=== PATIENT | male | born 1960 | race Hispanic/Latino ===

== ENCOUNTER 2021-02-10 13:56 | Emergency (ER) | payer SELFPAY ==
--- NOTE | 2021-02-10 15:20 | RAD REPORT ---
EXAM DESCRIPTION: RAD - Chest Single View - 02/10/2021 3:10 pm CLINICAL HISTORY: CHEST PAIN COMPARISON: No comparisons FINDINGS: No evidence of edema or pneumonia. The heart size is within normal limits.No acute osseous abnormality. No significant pleural effusions or pneumothorax. IMPRESSION: No acute cardiopulmonary disease.
[2021-02-10 15:57] LABS: Absolute Lymphocytes (CBC) 0.9 K/uL (0.7-4.9); Basophils % 0.5 % (0-1.3); Hematocrit 46.2 % (39.6-49.0); Lymphocytes % 10.8 % (15.3-44.8); MPV 9.3 fL (7.6-11.3); RBC Red Blood Cell Count 4.94 M/uL (4.33-5.43)
[2021-02-10] MEDS ORDERED: ASPIRIN 81 MG CHEWABLE TABLET ONE (16:04)
[2021-02-10 16:09] LABS: Protime INR 1.05
[2021-02-10 16:16] LABS: ALT/SGPT 49 U/L (12-78); AST/SGOT 38 U/L (15-37); Alkaline Phosphatase 52 U/L (45-117); BUN Blood Urea Nitrogen 9 mg/dL (7-18); Bicarbonate 27 mmol/L (21-32); Bilirubin Direct 0.2 mg/dL (0-0.2); Glucose Level 108 mg/dL (74-106); Lipase 68 U/L (73-393); Magnesium 2.1 mg/dL (1.8-2.4); NT PRO-BNP 120 pg/mL (<125); Potassium 3.6 mmol/L (3.5-5.1); Sodium Level 136 mmol/L (136-145); Troponin (Emerg Dept Use Only) < 0.02 ng/mL (0.0-0.045)
[2021-02-10] MEDS ORDERED: METOPROLOL TAR 50 MG TAB ONE (17:09)
--- NOTE | 2021-02-10 17:18 | ER ---
Nurse's Notes [facility] Name: Lorenzo Feng Age: 60 yrs Sex: Male : 1960 Arrival Date: 02/10/2021 Time: 13:57 Bed 28 Private MD: Diagnosis: Chest pain, unspecified;Essential (primary) hypertension;Ventricular premature depolarization Presentation: 02/10 14:01 Chief complaint: Patient states: left sided chest pain, neck pain, headache x 1 day. sv Reports EMS went to assess him and EKG was done. Coronavirus screen: Client denies travel out of the [place] in the last 14 days. At this time, the client does not indicate any symptoms associated with coronavirus-19. Ebola Screen: No symptoms or risks identified at this time. Risk Assessment: Do you want to hurt yourself or someone else? Patient reports no desire to harm self or others. Onset of symptoms was February 09, 2021. 14:01 Method Of Arrival: Ambulatory sv 14:01 Acuity: DESIRAE 2 sv 14:03 Initial Sepsis Screen: Does the patient meet any 2 criteria? No. Patient's initial sv sepsis screen is negative. Does the patient have a suspected source of infection? No. Patient's initial sepsis screen is negative. Triage Assessment: 14:06 General: Appears in no apparent distress. comfortable, Behavior is calm, cooperative, sv appropriate for age. Pain: Complains of pain in chest. Neuro: Level of Consciousness is awake, alert, obeys commands, Gait is steady. Respiratory: Respiratory effort is even, unlabored. Historical: - Allergies: 14:02 No Known Allergies; sv - PMHx: 14:02 HTN; sv - PSHx: 14:02 None; sv - Immunization history:: Client reports having NOT received the Covid vaccine. - Social history:: Smoking status: Patient denies any tobacco usage or history of. - Family history:: not pertinent. Screenin:58 Abuse screen: Denies threats or abuse. Nutritional screening: No deficits noted. ch5 Tuberculosis screening: No symptoms or risk factors identified. Fall Risk None identified. Assessment: 15:56 Pain: Denies pain. Pain radiates to chest Pain level that patient reports is acceptable ch5 is 0 out of 10 on a pain scale. Quality of pain is described as sharp, Pain began Chest and Neck pain today. Currently denies pain. Cardiovascular: Reports chest pain, Chest pain radiates neck. 17:00 Reassessment: Patient is alert, oriented x 3, equal unlabored respirations, skin aa5 warm/dry/pink. Dr. Ramos speaking to pt about POC to hospitalize, pt refusing, pt states "I just get so anxious and nervous just going to the doctor so I don't want to stay in the hospital". Dr. Ramos notified pt of risks of leaving AMA. . Vital Signs: 14:03 BP 164 / 107; Pulse 78; Resp 18; Temp 97; Pulse Ox 98% ; Weight 81.65 kg; Height 5 ft. sv 9 in. (175.26 cm); Pain 4/10; 15:56 BP 106 / 55; Pulse 113; Resp 20; Pulse Ox 100% on 2 lpm NC; Pain 0/10; ch5 14:03 Body Mass Index 26.58 (81.65 kg, 175.26 cm) sv ED Course: 13:57 Patient arrived in ED. am2 14:00 Arm band placed on. sv 14:02 Triage completed. sv 14:17 Aubrey Ramos MD is Attending Physician. [facility] 15:10 XRAY Chest (1 view) In Process Unspecified. EDMS 15:36 Daija Castro is Primary Nurse. aj2 15:58 Patient has correct armband on for positive identification. Bed in low position. Side ch5 rails up X 1. quality assurance monitor body on. Pulse ox on. NIBP on. 15:58 Inserted saline lock: 20 gauge in left antecubital area, using aseptic technique. ch5 Oxygen administration via nasal cannula \\T\\ 2L/min. 15:59 No provider procedures requiring assistance completed. ch5 16:00 Basic Metabolic Panel Sent. ch5 16:00 CBC with Diff Sent. ch5 16:00 LFT's Sent. ch5 16:00 Magnesium Sent. ch5 17:10 IV discontinued, intact, bleeding controlled, No redness/swelling at site. Pressure aa5 dressing applied. 17:16 Geovanny Corbin MD is Referral Physician. pau Administered Medications: 16:00 Drug: Aspirin Chewable Tablet 324 mg Route: PO; ch5 16:48 Drug: Lopressor (metoprolol TARTRATE) 50 mg Route: PO; jl7 Outcome: 17:10 AMA AMA form signed aa5 17:11 Patient left the ED. aa5 Signatures: Dispatcher [employer] EDHemalatha Barreto RN RN Aubrey Andrade MD MD cha Calderon, Audri RN RN aa5 Tiffany Roche RN RN jl7 Linnea Griggs am2 Daija Castro aj2 Jacobo Cardona RN RN ch5 Corrections: (The following items were deleted from the chart) 14:06 14:01 Acuity: DESIRAE 3 sv sv 14:06 14:03 Pulse 78bpm; Resp 18bpm; Pulse Ox 98%; Temp 97F; 81.65 kg; Height 5 ft. 9 in.; sv BMI: 26.5; sv 17:20 17:19 Patient left the ED. aa5 aa5
--- NOTE | 2021-02-10 17:18 | EDPHYS ---
Physician Documentation [facility] Name: Lorenzo Feng Age: 60 yrs Sex: Male : 1960 Arrival Date: 02/10/2021 Time: 13:57 Bed 28 Private MD: ED Physician Aubrey Ramos HPI: 02/10 17:01 This 60 yrs old Male presents to ER via Ambulatory with complaints of Chest pau Pain, Neck Pain, <24hrs Old, Headache, Arm Pain - left. 17:01 The patient or guardian reports chest pain that is located primarily in the anterior pau chest wall, left. Onset: last night. The pain does not radiate. Associated signs and symptoms: The patient has no apparent associated signs or symptoms. The chest pain is described as a pressure. Duration: The patient or guardian reports a single episode, that is now resolved. Modifying factors: The symptoms are alleviated by nothing. the symptoms are aggravated by nothing. Severity of pain: At its worst the pain was mild in the emergency department the pain is unchanged. The patient has not experienced similar symptoms in the past. Historical: - Allergies: 14:02 No Known Allergies; sv - PMHx: 14:02 HTN; sv - PSHx: 14:02 None; sv - Immunization history:: Client reports having NOT received the Covid vaccine. - Social history:: Smoking status: Patient denies any tobacco usage or history of. - Family history:: not pertinent. ROS: 17:01 Constitutional: Negative for fever, chills, and weight loss, Eyes: Negative for injury, pau pain, redness, and discharge, ENT: Negative for injury, pain, and discharge, Neck: Negative for injury, pain, and swelling, Respiratory: Negative for shortness of breath, cough, wheezing, and pleuritic chest pain, Abdomen/GI: Negative for abdominal pain, nausea, vomiting, diarrhea, and constipation, Back: Negative for injury and pain, : Negative for injury, bleeding, discharge, and swelling, MS/Extremity: Negative for injury and deformity, Skin: Negative for injury, rash, and discoloration, Neuro: Negative for headache, weakness, numbness, tingling, and seizure, Psych: Negative for depression, anxiety, suicide ideation, homicidal ideation, and hallucinations, Allergy/Immunology: Negative for hives, rash, and allergies, Endocrine: Negative for neck swelling, polydipsia, polyuria, polyphagia, and marked weight changes, Hematologic/Lymphatic: Negative for swollen nodes, abnormal bleeding, and unusual bruising. 17:01 Cardiovascular: Positive for chest pain, of the anterior aspect of left upper chest and left breast. Exam: 17:06 Constitutional: This is a well developed, well nourished patient who is awake, alert, pau and in no acute distress. Head/Face: Normocephalic, atraumatic. Eyes: Pupils equal round and reactive to light, extra-ocular motions intact. Lids and lashes normal. Conjunctiva and sclera are non-icteric and not injected. Cornea within normal limits. Periorbital areas with no swelling, redness, or edema. ENT: Nares patent. No nasal discharge, no septal abnormalities noted. Tympanic membranes are normal and external auditory canals are clear. Oropharynx with no redness, swelling, or masses, exudates, or evidence of obstruction, uvula midline. Mucous membranes moist. Neck: Trachea midline, no thyromegaly or masses palpated, and no cervical lymphadenopathy. Supple, full range of motion without nuchal rigidity, or vertebral point tenderness. No Meningismus. Chest/axilla: Normal chest wall appearance and motion. Nontender with no deformity. No lesions are appreciated. Cardiovascular: Regular rate and rhythm with a normal S1 and S2. No gallops, murmurs, or rubs. Normal PMI, no JVD. No pulse deficits. Respiratory: Lungs have equal breath sounds bilaterally, clear to auscultation and percussion. No rales, rhonchi or wheezes noted. No increased work of breathing, no retractions or nasal flaring. Abdomen/GI: Soft, non-tender, with normal bowel sounds. No distension or tympany. No guarding or rebound. No evidence of tenderness throughout. Back: No spinal tenderness. No costovertebral tenderness. Full range of motion. Male : Normal genitalia with no discharge or lesions. Skin: Warm, dry with normal turgor. Normal color with no rashes, no lesions, and no evidence of cellulitis. MS/ Extremity: Pulses equal, no cyanosis. Neurovascular intact. Full, normal range of motion. Neuro: Awake and alert, GCS 15, oriented to person, place, time, and situation. Cranial nerves II-XII grossly intact. Motor strength 5/5 in all extremities. Sensory grossly intact. Cerebellar exam normal. Normal gait. Psych: Awake, alert, with orientation to person, place and time. Behavior, mood, and affect are within normal limits. Vital Signs: 14:03 BP 164 / 107; Pulse 78; Resp 18; Temp 97; Pulse Ox 98% ; Weight 81.65 kg; Height 5 ft. sv 9 in. (175.26 cm); Pain 4/10; 15:56 BP 106 / 55; Pulse 113; Resp 20; Pulse Ox 100% on 2 lpm NC; Pain 0/10; ch5 14:03 Body Mass Index 26.58 (81.65 kg, 175.26 cm) sv MDM: 14:17 Patient medically screened. pau 17:14 Differential diagnosis: abnormal EKG, acute myocardial infarction, coronary artery pau disease hiatal hernia, pancreatitis, stable angina, unstable angina. HEART Score: History: Moderately Suspicious (1), ECG: Non specific repolarization disturbance / LBTB / PM (1), Age: > 45 and < 65 years (1), Risk Factors: 1 or 2 risk factors (1), [Hypertension] [+ Family HX] Troponin: < or = 1 x Normal Limit (0). The patient was given aspirin in the Emergency Department. The patient's deep vein thrombosis risk score was calculated as follows: Total Score: 0. This patient was found to be at low risk for a deep vein thrombosis by using the Well's assessment criteria. The patient's pulmonary embolism risk score was calculated as follows: Total Score: 0-2 points. This patient was found to be at low risk for a pulmonary embolism by using the Well's assessment criteria. ERIN Risk Score: TOTAL SCORE = 0. Data reviewed: vital signs, nurses notes, lab test result(s), EKG, radiologic studies, plain films. Data interpreted: monitor and storage bin tender: rate is 113 beats/min, rhythm is regular, Pulse oximetry: on room air is 100 %. Test interpretation: by ED physician or midlevel provider: ECG, plain radiologic studies. Counseling: I had a detailed discussion with the patient and/or guardian regarding: the historical points, exam findings, and any diagnostic results supporting the discharge/admit diagnosis, lab results, radiology results, the need for outpatient follow up. 02/10 14:18 Order name: Basic Metabolic Panel [facility] 02/10 14:18 Order name: CBC with Diff [facility] 02/10 14:18 Order name: LFT's [facility] 02/10 14:18 Order name: Magnesium [facility] 02/10 14:18 Order name: NT PRO-BNP; Complete Time: 16:23 [facility] 02/10 14:18 Order name: PT-INR; Complete Time: 16:23 [facility] 02/10 14:18 Order name: Troponin (emerg Dept Use Only); Complete Time: 16:23 [facility] 02/10 14:18 Order name: XRAY Chest (1 view); Complete Time: 16:23 [facility] 02/10 14:18 Order name: Lipase; Complete Time: 16:23 [facility] 02/10 14:19 Order name: Basic Metabolic Panel; Complete Time: 16:23 [facility] 02/10 14:19 Order name: CBC with Automated Diff; Complete Time: 16:23 [facility] 02/10 14:19 Order name: Liver (Hepatic) Function; Complete Time: 16:23 [facility] 02/10 14:19 Order name: Magnesium; Complete Time: 16:23 [facility] 02/10 16:49 Order name: COVID-19 : Document "Date of Symptom Onset" if Symptomatic. [facility] 02/10 14:18 Order name: EKG; Complete Time: 14:19 [facility] 02/10 14:18 Order name: Cardiac monitoring; Complete Time: 16:00 [facility] 02/10 14:18 Order name: EKG - Nurse/Tech; Complete Time: 16:00 [facility] 02/10 14:18 Order name: IV Saline Lock; Complete Time: 16:00 [facility] 02/10 14:18 Order name: Labs collected and sent; Complete Time: 16:00 [facility] 02/10 14:18 Order name: O2 Per Protocol; Complete Time: 16:48 [facility] 02/10 14:18 Order name: O2 Sat Monitoring; Complete Time: 16:00 [facility] 02/10 14:18 Order name: Urine Dipstick-Ancillary (obtain specimen) [facility] Administered Medications: 16:00 Drug: Aspirin Chewable Tablet 324 mg Route: PO; ch5 16:48 Drug: Lopressor (metoprolol TARTRATE) 50 mg Route: PO; jl7 Disposition Summary: 02/10/21 17:17 Left Against Medical Advice Location: Home pau Problem: new pau Symptoms: have improved pau Condition: Fair pau Diagnosis - Chest pain, unspecified pau - Essential (primary) hypertension pau - Ventricular premature depolarization pau Followup: pau - With: Private Physician - When: 2 - 3 days - Reason: Recheck today's complaints, Continuance of care, Re-evaluation by your physician Followup: pau - With: Geovanny Corbin MD - When: Upon discharge from the Emergency Department - Reason: Recheck today's complaints, Continuance of care, Re-evaluation by your physician Discharge Instructions: - Nonspecific Chest Pain, Adult pau - Hypertension, Adult pau - Nonspecific Chest Pain, Adult, [id number] pau - Hypertension, Adult, Vacl-oh-Jeld pau - How to Take Your Blood Pressure, [id number] pau - Aspirin and Your Heart pau - Discharge Summary Sheet aa5 - Managing Your Hypertension pau Prescriptions: - Toprol XL 25 mg Oral Tablet - take 1 tablet by ORAL route once daily; 20 tablet; Refills: 0, Product pau Selection Permitted Signatures: Dispatcher [employer] Hemalatha Acosta, RN Aubrey Kearns MD MD cha Leal, Jahala RN RN jl7 Jacobo Cardona RN RN ch5
[2021-02-10 17:29] VITALS: TEMP 97
[2021-02-10 17:31] VITALS: BP 106/55; O2SAT 100
== END 2021-02-10 17:19 | disposition left against medical advice (07) ==
LOC: ER 13:56
DX: I49.3 Ventricular premature depolarization (principal); I10 Essential (primary) hypertension
CPT/HCPCS: 36415; 71045; 80048; 80076; 83690; 83735; 83880; 84484; 85025; 85610; 93005; 99285

== ENCOUNTER 2021-03-14 12:16 | Emergency (ER) | payer SELFPAY ==
--- NOTE | 2021-03-14 14:04 | RAD REPORT ---
EXAM DESCRIPTION: RAD - Tib Fib Left - 03/14/2021 1:50 pm CLINICAL HISTORY: PAIN COMPARISON: No comparisons FINDINGS: Focal soft tissue swelling is seen mid tibial anterior soft tissues. No underlying osteomy elitis. No radiopaque foreign body or soft tissue gas.
--- NOTE | 2021-03-14 14:10 | RAD REPORT ---
EXAM DESCRIPTION: US - Extremity Nonvascular Complete - 03/14/2021 1:41 pm CLINICAL HISTORY: PAIN COMPARISON: No comparisons TECHNIQUE: Real-time sonographic evaluation of the area of interest was performed anterior left tibi a soft tissues. FINDINGS: Aurora subcutaneous fluid collection measuring 3.8 x 0.9 x 3.0 cm in the area of interest. This may represent a hematoma or abscess.
[2021-03-14] MEDS ORDERED: LIDOCAINE 1% MPF 5 ML VIAL ONE (14:58)
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
--- NOTE | 2021-03-14 15:11 | ER ---
Nurse's Notes [facility] Name: Lorenzo Feng Age: 60 yrs Sex: Male : 1960 Arrival Date: 03/14/2021 Time: 12:18 Bed 10 Private MD: Diagnosis: Contusion of left lower leg-with hematoma Presentation: 03/14 12:29 Chief complaint: Pt's son states "he bumped his leg about a week ago and now he has a aa5 knot". Swelling noted to left tabor. Coronavirus screen: At this time, the client does not indicate any symptoms associated with coronavirus-19. Ebola Screen: Patient negative for fever greater than or equal to 101.5 degrees Fahrenheit, and additional compatible Ebola Virus Disease symptoms. Initial Sepsis Screen: Does the patient meet any 2 criteria? No. Patient's initial sepsis screen is negative. Does the patient have a suspected source of infection? No. Patient's initial sepsis screen is negative. Risk Assessment: Do you want to hurt yourself or someone else? Patient reports no desire to harm self or others. Onset of symptoms was February 2021. 12:29 Method Of Arrival: Ambulatory aa5 12:29 Acuity: DESIRAE 3 aa5 Historical: - Allergies: 12:32 No Known Allergies; aa5 - PMHx: 12:32 HTN; aa5 - Immunization history:: Client reports receiving the 1st dose of the Covid vaccine. - Social history:: Smoking status: Patient denies any tobacco usage or history of. Screenin:30 Abuse screen: Denies threats or abuse. Denies injuries from another. Nutritional ld1 screening: No deficits noted. Tuberculosis screening: No symptoms or risk factors identified. Fall Risk None identified. Assessment: 13:30 General: Appears in no apparent distress. uncomfortable, Behavior is calm, cooperative, ld1 appropriate for age. 13:30 Pain: Complains of pain in left tabor Pain does not radiate. Pain currently is 8 out of ld1 10 on a pain scale. Quality of pain is described as throbbing, Pain began 2-3 days ago. Is continuous. Neuro: Level of Consciousness is awake, alert, obeys commands, Oriented to person, place, time, situation, Appropriate for age. Cardiovascular: Capillary refill < 3 seconds Patient's skin is warm and dry. Respiratory: Airway is patent Respiratory effort is even, unlabored, Respiratory pattern is regular, symmetrical. GI: Abdomen is flat, non-distended. : No signs and/or symptoms were reported regarding the genitourinary system. EENT: No signs and/or symptoms were reported regarding the EENT system. Derm: Wound noted left tabor Other: Pt reports getting hit in the leg with a large log 5 days ago. Musculoskeletal: No signs and/or symptoms reported regarding the musculoskeletal system. 14:31 Reassessment: Patient appears in no apparent distress at this time. No changes from ld1 previously documented assessment. Patient and/or family updated on plan of care and expected duration. Pain level reassessed. 15:31 Reassessment: Patient appears in no apparent distress at this time. No changes from ld1 previously documented assessment. Patient and/or family updated on plan of care and expected duration. Pain level reassessed. Patient is alert, oriented x 3, equal unlabored respirations, skin warm/dry/pink. Vital Signs: 12:29 BP 143 / 91; Pulse 71; Resp 16 S; Temp 98.3(O); Pulse Ox 100% on R/A; Weight 79.38 kg aa5 (R); Height 5 ft. 9 in. (175.26 cm) (R); 13:30 BP 138 / 88; Pulse 76; Resp 18; Pulse Ox 100% on R/A; ld1 12:29 Body Mass Index 25.84 (79.38 kg, 175.26 cm) aa5 ED Course: 12:18 Patient arrived in ED. as 12:29 Arm band placed on. aa5 12:32 Triage completed. aa5 12:54 Kiley Ledesma [facility]-C [facility]. kb 12:54 Aubrey Ramos MD is Attending Physician. kb 13:30 Patient has correct armband on for positive identification. Placed in gown. Bed in low ld1 position. Call light in reach. Pulse ox on. NIBP on. Door closed. Noise minimized. 13:30 No provider procedures requiring assistance completed. ld1 13:41 Extremity Nonvascular Complete In Process Unspecified. EDMS 13:48 Tib Fib Left XRAY In Process Unspecified. EDMS 15:31 Patient did not have IV access during this emergency room visit. ld1 Administered Medications: 15:06 Drug: Lidocaine (1 %) 1 vials {Note: By FNP. Grey.} Volume: 5 ml; Route: ld1 Infiltration; 15:06 Follow up: Response: No adverse reaction ld1 15:22 Drug: Bactrim (trimethoprim-sulfamethoxazole) (160 mg-800 mg (DS) 1 tablet Route: PO; ld1 Outcome: 15:10 Discharge ordered by MD. ponce 15:31 Discharged to home ambulatory, with family. ld1 15:31 Condition: stable 15:31 Discharge instructions given to patient, family, Instructed on discharge instructions, follow up and referral plans. medication usage, Demonstrated understanding of instructions, follow-up care, medications, Prescriptions given X 2. 15:31 Patient left the ED. ld1 Signatures: Dispatcher [employer] Kiley Bain, SHEILA HAHN-Gabriela Hair Audri, RN RN aa5 Jeannie Bravo RN RN ld1 Corrections: (The following items were deleted from the chart) 13:41 13:39 In radiology for Extremity [employer].RAD.ROSALES. DAYSITX DAYSITX
[2021-03-14] MEDS ORDERED: SMZ./TMP. 800/160 MG TABLET ONE (15:37)
[2021-03-15 03:51] VITALS: TEMP 98.3; O2SAT 100
[2021-03-15 03:53] VITALS: BP 138/88
== END 2021-03-14 15:31 | disposition home or self-care (01) ==
LOC: ER 12:16
PROC: 0J9P0ZZ Drainage of Left Lower Leg Subcutaneous Tissue and Fascia, Open Approach (ICD-10-PCS; principal; 2021-03-14)
DX: L02.416 Cutaneous abscess of left lower limb (principal); I10 Essential (primary) hypertension; W22.8XXA Striking against or struck by other objects, initial encounter
CPT/HCPCS: 76881; 99284

== ENCOUNTER 2021-11-24 11:35 | Inpatient (IN) | payer SELFPAY ==
[2021-11-24] MEDS ORDERED: ONDANSETRON 4 MG/2 ML VIAL ONE ×2 (12:20→19:46)
[2021-11-24] MEDS ORDERED: MORPHINE 4 MG/ML SYR ONE (12:20)
[2021-11-24] MEDS ORDERED: NA CHLORIDE 0.9% 1,000 ML ONE ×2 (12:21→14:13)
[2021-11-24 12:22] LABS: Absolute Lymphocytes (CBC) 0.3 K/uL (0.7-4.9); Hematocrit 46.7 % (39.6-49.0); Lymphocytes % 2.2 % (15.3-44.8); MPV 8.5 fL (7.6-11.3); RBC Red Blood Cell Count 5.05 M/uL (4.33-5.43)
[2021-11-24 13:27] LABS: Albumin 3.4 g/dL (3.4-5.0); Bilirubin Total 1.6 mg/dL (0.2-1.0); Potassium 3.3 mmol/L (3.5-5.1); Protein, Total 6.8 g/dL (6.4-8.2)
--- NOTE | 2021-11-24 13:55 | RAD REPORT ---
EXAM DESCRIPTION: CT - Abdomen Pelvis W Contrast - 11/24/2021 1:43 pm CLINICAL HISTORY: Abdominal pain COMPARISON: none. TECHNIQUE: Computed axial tomography of the abdomen pelvis was obtained. 100 cc Isovue-300 was admin istered intravenously. Oral contrast was not requested which limits evaluation of bowel and appendix All CT scans are performed using dose optimization technique as appropriate and may include automated exposure control or mA/KV adjustment according to patient size. FINDINGS: Fatty liver. Tiny low-density lesion within the right lobe is too small to characterize bu t probably is a cyst. Spleen, pancreas, adrenal and kidneys appear unremarkable. There is no evidence of diverticulitis Small inguinal hernias contain fat. The appendix is dilated and fluid-filled with mild stranding within the adjacent fat. The appendix ex tends medial and superior from the cecum. No abscess. No free air Mild to moderate anterior subluxation L5 on S1. Spondylolysis L5 IMPRESSION: Appendicitis.
[2021-11-24] MEDS ORDERED: NA CHLORIDE 0.9% 100 ML ONE (14:13)
[2021-11-24] MEDS ORDERED: PIPERACIL/TAZO 4.5 GM VIAL IV ONE (14:13)
[2021-11-24] MEDS ORDERED: HYDROMORPHONE HCL 1 MG/ML INJ ONE (14:38)
[2021-11-24 15:09] LABS: Blood Morphology Comment NOT SEEN (NOT SEEN); Platelet Estimate ADEQ; White Blood Cell Scan OK (OK)
--- NOTE | 2021-11-24 17:40 | ER ---
Nurse's Notes [facility] Name: Lorenzo Feng Age: 61 yrs Sex: Male : 1960 Arrival Date: 11/24/2021 Time: 11:36 Bed 12 Private MD: Diagnosis: Acute appendicitis with localized peritonitis Presentation: 11/24 11:54 Chief complaint: Patient states: Lower abd pain for 2 days. No fever or N./V/D. ll1 Coronavirus screen: Vaccine status: Patient reports receiving the 1st dose of the Covid vaccine. Client denies travel out of the [place] in the last 14 days. At this time, the client does not indicate any symptoms associated with coronavirus-19. Ebola Screen: Patient denies travel to an Ebola-affected area in the 21 days before illness onset. Initial Sepsis Screen: Does the patient meet any 2 criteria? HR > 90 bpm. No. Patient's initial sepsis screen is negative. Does the patient have a suspected source of infection? Yes: Acute abdominal pain. Risk Assessment: Do you want to hurt yourself or someone else? Patient reports no desire to harm self or others. Onset of symptoms was November 23, 2021. 11:54 Method Of Arrival: Ambulatory ll1 11:54 Acuity: DESIRAE 3 ll1 Historical: - Allergies: 11:54 No Known Allergies; ll1 - PMHx: 11:54 HTN; ll1 - PSHx: 11:54 None; ll1 - Immunization history:: Client reports receiving the 2nd dose of the Covid vaccine. - Social history:: Smoking status: Patient denies any tobacco usage or history of. Screenin:17 Abuse screen: Denies threats or abuse. Denies injuries from another. Nutritional ss screening: No deficits noted. Tuberculosis screening: Never had TB. Fall Risk None identified. Assessment: 12:39 General: Appears in no apparent distress. uncomfortable, Behavior is calm, cooperative, ld1 appropriate for age. Pain: Complains of pain in abdomen Pain does not radiate. Pain currently is 8 out of 10 on a pain scale. Quality of pain is described as throbbing, Pain began suddenly. Neuro: Level of Consciousness is awake, alert, obeys commands, Oriented to person, place, time, situation. Cardiovascular: Capillary refill < 3 seconds Patient's skin is warm and dry. Respiratory: Airway is patent Respiratory effort is even, unlabored. GI: Abdomen is round non-distended, Bowel sounds present X 4 quads. Abd is soft Abdomen is tender to palpation. : No signs and/or symptoms were reported regarding the genitourinary system. EENT: No signs and/or symptoms were reported regarding the EENT system. Derm: No signs and/or symptoms reported regarding the dermatologic system. Musculoskeletal: No signs and/or symptoms reported regarding the musculoskeletal system. 13:19 Reassessment: Patient appears in no apparent distress at this time. Patient and/or ld1 family updated on plan of care and expected duration. Pain level reassessed. Patient states symptoms have improved. 14:38 Reassessment: Patient appears in no apparent distress at this time. Patient and/or ld1 family updated on plan of care and expected duration. Pain level reassessed. C/O pain. Notified ERP. See [facility] for orders. 15:20 Reassessment: Vance MONTOYA - [phone]. ld1 16:24 Reassessment: Patient appears in no apparent distress at this time. Patient and/or ld1 family updated on plan of care and expected duration. Pain level reassessed. Patient is alert, oriented x 3, equal unlabored respirations, skin warm/dry/pink. 17:32 Reassessment:. ld1 Vital Signs: 11:54 BP 148 / 84; Pulse 107; Resp 16; Temp 98.5; Pulse Ox 93% ; Pain 10/10; ll1 12:39 BP 139 / 82; Pulse 99; Resp 18; Pulse Ox 96% on R/A; ld1 13:19 BP 133 / 79; Pulse 85; Resp 18; Pulse Ox 98% on R/A; Pain 3/10; ld1 16:24 BP 131 / 76; Pulse 81; Resp 18; Pulse Ox 99% on R/A; ld1 17:27 Temp 99.1(O); ss ED Course: 11:36 Patient arrived in ED. rg4 11:42 Lorenzo Bennett MD is Attending Physician. jr11 11:57 Triage completed. ll1 11:57 Arm band placed on Patient placed in an exam room, on a stretcher. ll1 12:12 Jeannie Bravo, RN is Primary Nurse. ld1 12:17 Patient has correct armband on for positive identification. Bed in low position. Call ss light in reach. 12:17 Inserted saline lock: 20 gauge in right antecubital area, using aseptic technique. ss Blood collected. 12:39 No provider procedures requiring assistance completed. ld1 13:45 CT Abd/Pelvis - IV Contrast Only In Process Unspecified. EDMS 14:30 SARS-COV-2 RT PCR (Document "Date of Onset" if Symptomatic) Sent. ld1 17:40 Clem Hussein MD is Hospitalizing Provider. jr11 17:55 Patient admitted, IV remains in place. ss Administered Medications: 12:34 Drug: morphine 4 mg Route: IVP; Infused Over: 4 mins; Site: right antecubital; ld1 12:34 Drug: NS 0.9% 1000 ml Route: IV; Rate: 1 bolus; Site: right antecubital; ld1 12:35 Drug: Zofran (Ondansetron) 4 mg Route: IVP; Site: right antecubital; ld1 14:29 Drug: NS 0.9% 1000 ml Route: IV; Rate: 125 ml/hr; Site: right antecubital; ld1 14:30 Drug: Zosyn (piperacillin-tazobactam) 4.5 grams Route: IVPB; Infused Over: 60 mins; ld1 Site: right antecubital; 14:33 Drug: Dilaudid (HYDROmorphone) 0.5 mg Route: IVP; Site: right antecubital; ld1 Medication: 12:39 VIS not applicable for this client. ld1 Outcome: 17:40 Decision to Hospitalize by Provider. jr11 17:55 Discharged to home ambulatory. ss 17:55 Condition: good 17:55 Instructed on the need for admit. 17:56 Patient left the ED. Signatures: Dispatcher [employer] Flory Lozoya RN RN ss Garcia, Rubi rg4 Huang Lester RN RN ll1 Jeannie Bravo, SWATI RN ld1 Lorenzo Bennett MD MD jr11
--- NOTE | 2021-11-24 17:40 | EDPHYS ---
Physician Documentation [facility] Name: Lorenzo Feng Age: 61 yrs Sex: Male : 1960 Arrival Date: 11/24/2021 Time: 11:36 Bed 12 Private MD: ED Physician Lorenzo Bennett HPI: 11/24 12:12 This 61 yrs old Male presents to ER via Ambulatory with complaints of jr11 Abdominal Pain. 12:12 The patient presents with abdominal pain in the upper abdomen, that is diffuse. Onset: jr11 The symptoms/episode began/occurred 2 day(s) ago. The symptoms do not radiate. Associated signs and symptoms: Pertinent negatives:. The symptoms are described as achy, constant. Modifying factors: The symptoms are alleviated by nothing, the symptoms are aggravated by movement. Severity of pain: At its worst the pain was moderate in the emergency department the pain is actually worse. Historical: - Allergies: 11:54 No Known Allergies; ll1 - PMHx: 11:54 HTN; ll1 - PSHx: 11:54 None; ll1 - Immunization history:: Client reports receiving the 2nd dose of the Covid vaccine. - Social history:: Smoking status: Patient denies any tobacco usage or history of. ROS: 12:12 All other systems are negative. jr11 Exam: 12:12 Constitutional: This is a well developed, well nourished patient who is awake, alert, jr11 and in no acute distress. Head/Face: Normocephalic, atraumatic. Eyes: Extra-ocular motions intact. Lids and lashes normal. Conjunctiva and sclera are non-icteric and not injected. Cornea within normal limits. Periorbital areas with no swelling, redness, or edema. ENT: Nares patent. No nasal discharge, no septal abnormalities noted. Oropharynx with no redness, swelling, or masses, exudates, or evidence of obstruction, uvula midline. Mucous membranes moist. Neck: Trachea midline, no thyromegaly or masses palpated, and no cervical lymphadenopathy. Supple, full range of motion without nuchal rigidity, or vertebral point tenderness. No Meningismus. Chest/axilla: Normal chest wall appearance and motion. Nontender with no deformity. No lesions are appreciated. Cardiovascular: tachy regular Respiratory: Lungs have equal breath sounds bilaterally, clear to auscultation and percussion. No rales, rhonchi or wheezes noted. No increased work of breathing, no retractions or nasal flaring. Abdomen/GI: TTP RLQ, no guarding Back: No spinal tenderness. No costovertebral tenderness. Full range of motion. Skin: Warm, dry with normal turgor. Normal color with no rashes, no lesions, and no evidence of cellulitis. MS/ Extremity: Pulses equal, no cyanosis. Neurovascular intact. Full, normal range of motion. Neuro: Awake and alert, GCS 15, oriented to person, place, time, and situation. No gross motor or sensory deficits. Vital Signs: 11:54 BP 148 / 84; Pulse 107; Resp 16; Temp 98.5; Pulse Ox 93% ; Pain 10/10; ll1 12:39 BP 139 / 82; Pulse 99; Resp 18; Pulse Ox 96% on R/A; ld1 13:19 BP 133 / 79; Pulse 85; Resp 18; Pulse Ox 98% on R/A; Pain 3/10; ld1 16:24 BP 131 / 76; Pulse 81; Resp 18; Pulse Ox 99% on R/A; ld1 17:27 Temp 99.1(O); ss MDM: 11:58 Patient medically screened. jr11 12:12 Differential diagnosis: non-specific abd pain, appy. Data reviewed: vital signs, nurses jr11 notes. ED course: Tachycardic with worsening right lower quadrant pain, concern for appendicitis, will do lab work CT, reassess. In the meantime treat him symptomatically.. 14:04 ED course: Per surgery, will go to OR from ER. jr11 11/24 12:00 Order name: CBC with Diff; Complete Time: 16:22 jr 11/24 12:00 Order name: CMP; Complete Time: 13:46 [facility] 11/24 12:00 Order name: Lipase; Complete Time: 13:46 [facility] 11/24 12:00 Order name: Lactate; Complete Time: 13:46 jr 11/24 13:26 Order name: CBC Smear Scan; Complete Time: 16:22 EDAZ 11/24 14:24 Order name: SARS-COV-2 RT PCR (Document "Date of Onset" if Symptomatic); Complete Time: eb 16:22 11/24 12:00 Order name: CT Abd/Pelvis - IV Contrast Only; Complete Time: 14:00 11/24 12:00 Order name: IV Saline Lock; Complete Time: 12:34 11/24 12:00 Order name: Labs collected and sent; Complete Time: 12:34 11/24 12:32 Order name: Labs - recollect needed: light green tube recollect; Complete Time: 13:04 11/24 14:03 Order name: NPO; Complete Time: 14:03 [facility] Administered Medications: 12:34 Drug: morphine 4 mg Route: IVP; Infused Over: 4 mins; Site: right antecubital; ld1 12:34 Drug: NS 0.9% 1000 ml Route: IV; Rate: 1 bolus; Site: right antecubital; ld1 12:35 Drug: Zofran (Ondansetron) 4 mg Route: IVP; Site: right antecubital; ld1 14:29 Drug: NS 0.9% 1000 ml Route: IV; Rate: 125 ml/hr; Site: right antecubital; ld1 14:30 Drug: Zosyn (piperacillin-tazobactam) 4.5 grams Route: IVPB; Infused Over: 60 mins; ld1 Site: right antecubital; 14:33 Drug: Dilaudid (HYDROmorphone) 0.5 mg Route: IVP; Site: right antecubital; ld1 Disposition Summary: 11/24/21 17:40 Hospitalization Ordered Hospitalization Status: Observation [facility] Provider: Clem Husesin [facility] Location: Operating Room [facility] Condition: Stable [facility] Problem: new [facility] Symptoms: are unchanged [facility] Bed/Room Type: [place] [id number] Room Assignment: [facility] Diagnosis - Acute appendicitis with localized peritonitis [facility] Forms: - Medication Reconciliation Form jr11 - SBAR form jr11 Signatures: Dispatcher [employer] Ebony Lane Lynsay, RN RN ll1 Jeannie Bravo RN RN ld1 Lorenzo Bennett MD MD [facility]
[2021-11-24] MEDS ORDERED: MORPHINE 4 MG/ML SYR IV PRN (18:27)
[2021-11-24] MEDS ORDERED: ONDANSETRON 4 MG/2 ML VIAL IV PRN (18:27)
[2021-11-24] MEDS ORDERED: D5 0.45 NS 1,000 ML IV SCH (18:27)
[2021-11-24] MEDS ORDERED: BUPIVACAINE 0.25% PF 10 ML VIAL ONE (18:40)
[2021-11-24] MEDS ORDERED: propofoL 200 MG/20 ML VIAL IV ONE (18:47)
[2021-11-24] MEDS ORDERED: LIDOCAINE 2% MPF 5 ML VIAL ONE (18:47)
[2021-11-24] MEDS ORDERED: ROCURONIUM 50 MG/5 ML VIAL IV ONE ×2 (18:48→19:46)
[2021-11-24] MEDS ORDERED: FENTANYL CITR 100 MCG/2 ML ONE ×2 (18:48→19:54)
[2021-11-24] MEDS ORDERED: KETOROLAC 30 MG/ML INJ ONE (19:28)
[2021-11-24] MEDS ORDERED: dexAMETHasone 10 MG/ML VIAL ONE (19:28)
[2021-11-24] MEDS ORDERED: MIDAZOLAM HCL 2 MG/2 ML INJ ONE (19:40)
[2021-11-24] MEDS ORDERED: GLYCOPYRROLATE 0.2 MG/ML SYR ONE (19:47)
[2021-11-24] MEDS ORDERED: NEOSTIGMINE 1 MG/ML -10 ML VIAL ONE (19:54)
--- NOTE | 2021-11-24 20:05 | P.OP ---
Preoperative diagnosis: Acute Appendicitis Postoperative diagnosis: Acute Appendicitis Primary procedure: Laparoscopic Appendectomy Anesthesia: GETA + Local Estimated blood loss: <5cc Specimen: Vermiform Appendix Findings: Inflammed non-perforated appendicitis, suppurative changes, dilated Complications: None Transferred to: Recovery Room Condition: Good
[2021-11-24] MEDS ORDERED: HYDROCODONE/APAP 7.5/325 MG TAB PO PRN (20:14)
[2021-11-24 20:36] VITALS: O2SAT 96
[2021-11-24] MEDS: INSULIN -REGULAR HUMAN 50 UNIT/0.5 ML ML SQ SCH (21:00)
[2021-11-24] MEDS ORDERED: ACETAMINOPHEN 500 MG TAB PO PRN (21:11)
--- NOTE | 2021-11-24 21:18 | HP ---
Date of Admission: 11/24/2021 Brief History Of Present Illness: The patient is a 61-year-old male, who presents with comp laints of abdominal pain in the periumbilical area, now in the right lower quadrant beginning approxi mately 2 days prior. He thought it was related to the food he was eating, but has not been having mu ch appetite as the last few days and got significantly worse. He ate yesterday was the last time. Padmini pena had the pain significantly worsening, sharp, stabbing in the right lower quadrant. He has never valderrama d similar episodes before or in the past. No sick contacts. No recent travel. No new food exposure s or COVID exposures that he is aware. Allergies: NO KNOWN DRUG ALLERGIES. Medications: None. Past Medical History: Significant for hypertension. Past Surgical History: Denies. He had received COVID vaccinations x2. Social History: He denies smoking. He drinks beer only and denies recreational drug use. Review of Systems: Ten-point review of systems other than HPI, he admits to feeling cold. Physical Examination: Vital Signs: At time of my examination, blood pressure 140/84, pulse 107, respirations 16, temperatu re 98.5, pulse ox 93% on room air. General: He is awake, alert, oriented. Psychiatric: Appropriate, conversive. HEENT: He is normocephalic. Sclerae anicteric. Mucous membranes moist. Oropharynx is clear. Neck: Supple without JVD. Chest: Expansion and excursion. Cardiovascular: Regular rate and rhythm. Pulmonary: Clear to auscultation bilaterally. Abdomen: Soft with positive right lower quadrant tenderness to palpation. Positive focal peritoniti s in [place] point. Positive guarding. Positive rebound. Extremities: No clubbing, cyanosis, or edema. Skin: Warm and dry. Laboratory Data: Revealed a white blood cell count of 12.6, hemoglobin is 15.8, hematocrit 46.7, ethel telet count was 116, neutrophils are 90%. His chemistry showed a sodium of 138, potassium 3.3, chlor jeanna of 105, carbon dioxide 28, BUN 11, creatinine 0.7, glucose is 121, lactic acid 1.0, total bilirub in 1.6, AST 45, ALT 51, alkaline phosphatase is 45. His lipase is 54. On admission, his serology sh owed COVID negative. He had a CT scan performed of the abdomen and pelvis, officially read as append icitis. The appendix is dilated and fluid-filled with mild stranding and adjacent fat. The appendix extends medial and superior to the cecum. No abscess or free air. Assessment And Plan: This is a 61-year-old male, who comes with signs and symptoms of acute nonperfo rated appendicitis. 1.IV fluid hydration. 2.Antibiotic coverage. 3.I have explained the risks, benefits, and alternatives of laparoscopic possible open appendectomy including, not limited to bleeding, infection, damage to surrounding tissues, need for further operat ion and procedures. The patient agrees to proceed as indicated. AKOSUA/NANCY Voice ID: [id number]
--- NOTE | 2021-11-24 21:18 | OP ---
Date of Procedure: 11/24/2021 Surgeon: Clem Hussein MD, Preoperative Diagnosis: Acute appendicitis. Postoperative Diagnosis: Acute appendicitis. Procedures Performed: Laparoscopic appendectomy. Anesthesia: General endotracheal plus local with 0.25% Marcaine. Estimated Blood Loss: Less than 5 cc. Specimen: Vermiform appendix. Findings: Inflamed, nonperforated appendicitis, suppurative changes and dilated. Complications: None. Disposition: The patient was transferred to the recovery room in good condition. Procedure In Detail: After informed consent was obtained, the patient was brought to the operating, prepped and draped in the usual sterile fashion after adequate anesthesia achieved. An infraumbilica l area was anesthetized with 0.25% Marcaine, sharply incised. A 5 mm 0-degree optical trocar was int roduced into the abdomen without evidence of complication. Insufflation obtained to 15 mmHg at this time. There was no injury to vital structures upon entry into the abdomen. The patient was noted to have quite a significant amount of preperitoneal fat extending around the infraumbilical abdomen. A dditional trocar was placed in the right lower quadrant. This was similarly anesthetized, sharply in cised. A 5 mm trocar was placed under direct visualization without evidence of complication. The in fraumbilical trocar then upsized to a 12 mm under direct visualization without evidence of complicati on. Additional trocar placed in the midline superior to the umbilicus. This was similarly anestheti zed, sharply incised. A 5 mm trocar was placed under direct visualization without evidence of compli cation. The patient was positioned in the appendix position that is head down right side up position . Ratcheted grasper was used to grasp the patient's appendix medially. Suppurative changes were merle dent without evidence of perforation. There were some suppurative changes down to the base of the ce cum. The area was inspected at this point. No obvious perforation was appreciated. A mesoappendice al window was created with a [place] retractor. Endo-STEPHANIE 45 purple load fired across the base of th e appendix with good approximation of tissues at the confluence of the cecum. There were no hemostat ic maneuvers required at the staple at this point. The LigaSure was then used to take the mesoappend ix down without evidence of complication. The appendix was then placed in EndoCatch bag, removed thr ough the umbilical trocar site, and sent off for pathologic examination. The abdomen was then copiou sly irrigated after re-insufflation was obtained at this point copiously and suctioned out until comp letely dry. The patient was placed back to neutral position. The umbilical trocar site was closed u sing a Tayo-Patty suture passer with 0 Vicryl in an interrupted fashion with good approximation of tissues. The abdomen was completely desufflated under direct visualization without evidence of co mplication. Remaining trocars were removed. All skin incisions were copiously irrigated and closed with interrupted lindsey. A sterile dressing was placed over top. The patient tolerated the procedu re well without evidence of complication and transferred to PACU in good condition. All counts were correct at the end of the case. AKOSUA/NANCY Voice ID: [id number] Report ID: [id number]
[2021-11-24] MEDS: Ringers Lactate 1,000 ML IV SCH (21:41)
[2021-11-24 23:54] VITALS: BMI 26.5
[2021-11-25] MEDS: PIPER TAZO 3.375 GM in NA CHLORIDE 0.9% 100 ML IV SCH ×2 (01:18→09:31)
[2021-11-25 06:00] LABS: Absolute Lymphocytes (CBC) 0.3 K/uL (0.7-4.9); Hematocrit 40.5 % (39.6-49.0); Lymphocytes % 2.3 % (15.3-44.8); MPV 8.5 fL (7.6-11.3); RBC Red Blood Cell Count 4.38 M/uL (4.33-5.43)
[2021-11-25 06:23] LABS: Albumin 3.1 g/dL (3.4-5.0); Bilirubin Direct 0.5 mg/dL (0-0.2); Bilirubin Total 2.2 mg/dL (0.2-1.0); Potassium 3.9 mmol/L (3.5-5.1); Protein, Total 6.9 g/dL (6.4-8.2)
[2021-11-25] MEDS: Ringers Lactate 1,000 ML IV SCH (07:00)
[2021-11-25] MEDS: INSULIN -REGULAR HUMAN 50 UNIT/0.5 ML ML SQ SCH ×2 (07:30→11:30)
--- NOTE | 2021-11-25 09:59 | P.DS ---
Admission Date: 11/24/21 Discharge Date: 11/25/21 Disposition: ROUTINE DISCHARGE Discharge Condition: GOOD Procedures: Laparoscopic appendectomy Brief History of Present Illness: patient presented with RLQ abdominal pain Hospital Course: went to OR for lap appendectomy, uncomplicated - did well post op, no complaints, tolerating diet, good bowel function, pain well controlled, no wound issues Vital Signs/Physical Exam: Temp Pulse Resp BP Pulse Ox 97.5 F 59 18 125/65 98 11/25/21 08:00 11/25/21 08:00 11/25/21 08:00 11/25/21 08:00 11/25/21 08:00 General: Alert, In no apparent distress, Cooperative HEENT: Mucous membr. moist/pink Respiratory: Clear to auscultation bilaterally Cardiovascular: Regular rate/rhythm Gastrointestinal: Other (soft, mild appropriate TTP, ND, lindsey in place, incisions clean and dry) Laboratory Data at Discharge: WBC 11.7 K/uL (4.3-10.9) H 11/25/21 05:40 Hgb 13.9 g/dL (13.6-17.9) 11/25/21 05:40 Hct 40.5 % (39.6-49.0) 11/25/21 05:40 Plt Count 145 K/uL (152-406) L 11/25/21 05:40 Sodium 135 mmol/L (136-145) L 11/25/21 05:40 Potassium 3.9 mmol/L (3.5-5.1) 11/25/21 05:40 BUN 11 mg/dL (7-18) 11/25/21 05:40 Creatinine 0.90 mg/dL (0.55-1.3) 11/25/21 05:40 Glucose 156 mg/dL (74-106) H 11/25/21 05:40 Total Bilirubin 2.2 mg/dL (0.2-1.0) H 11/25/21 05:40 AST 41 U/L (15-37) H 11/25/21 05:40 ALT 46 U/L (12-78) 11/25/21 05:40 Alkaline Phosphatase 39 U/L (45-117) L 11/25/21 05:40 Lipase 46 U/L (73-393) L 11/25/21 05:40 Diet: Regular Activity: No lifting more than 10 lbs Followup: Clem Hussein MD [ACTIVE - CAN ADMIT] - NONE,NONE [Primary Care Provider] -
[2021-11-25 13:02] VITALS: BP 145/74; TEMP 97.3
== END 2021-11-25 13:23 | disposition home or self-care (01) | DRG 343 ==
LOC: ER 11:35 → ERHOLD 17:43 → 2ND 19:47 → OBSVTOIN 21:07
PROVIDERS: ADMIT Surgery; ATTEND Surgery
PROC: 0DTJ4ZZ Resection of Appendix, Percutaneous Endoscopic Approach (ICD-10-PCS; principal; 2021-11-24 16:15)
DX: K35.80 Unspecified acute appendicitis (principal); I10 Essential (primary) hypertension; Z20.822 Contact with and (suspected) exposure to COVID-19
CPT/HCPCS: 36415; 74177; 80048; 80053; 80076; 82947; 83605; 83690; 85025; 88304; 94010; 96374; 96375; 99284; G0378; J1100; J1170; J2250; J2405; J2543; J2704; J2710; J3010; J7030; J7120; Q9967; U0003

== ENCOUNTER 2022-08-29 18:11 | Observation (INO) | payer SELFPAY ==
[2022-08-29 18:45] LABS: Absolute Lymphocytes (CBC) 1.2 K/uL (0.7-4.9); Hematocrit 46.1 % (39.6-49.0); Lymphocytes % 15.4 % (15.3-44.8); MCV 91.5 fL (80-100); MPV 9.2 fL (7.6-11.3); RBC Red Blood Cell Count 5.04 M/uL (4.33-5.43)
[2022-08-29 18:50] LABS: Protime INR 1.1
[2022-08-29] MEDS ORDERED: NITROGLYCERIN 0.4 MG/TAB SL ONE (18:57)
[2022-08-29] MEDS ORDERED: ASPIRIN 81 MG CHEWABLE TABLET ONE (18:57)
[2022-08-29] MEDS ORDERED: NA CHLORIDE 0.9% 500 ML ONE (18:57)
[2022-08-29 19:03] LABS: Potassium 3.6 mmol/L (3.5-5.1); Troponin High Sensitivity 9.7 pg/mL (<58.9)
[2022-08-29 19:10] LABS: Albumin 3.9 g/dL (3.4-5.0); Bilirubin Direct 0.2 mg/dL (0-0.2); Bilirubin Total 0.6 mg/dL (0.2-1.0); Protein, Total 8.1 g/dL (6.4-8.2)
--- NOTE | 2022-08-29 19:52 | RAD REPORT ---
EXAM DESCRIPTION: New Single View08/29/2022 7:30 pm CLINICAL HISTORY: Chest pain COMPARISON: 2020 FINDINGS: The lungs appear clear of acute infiltrate. The heart is normal size IMPRESSION: No acute abnormalities displayed
[2022-08-29] MEDS ORDERED: METOPROLOL TAR 25 MG TAB ONE (20:35)
[2022-08-29 20:45] LABS: Urine Blood Negative (Negative); Urine Glucose Negative (Negative); Urine Protein Negative (Negative); Urine Specific Gravity 1.015 (1.005-1.030); Urine pH 5.5 (5.0-7.0)
[2022-08-29 20:57] LABS: Barbiturates NEGATIVE (NEGATIVE); Benzodiazepines NEGATIVE (NEGATIVE); Cocaine NEGATIVE (NEGATIVE); METHAMPHETAM NEGATIVE (NEGATIVE); Methadone NEGATIVE (NEGATIVE); Opiates NEGATIVE (NEGATIVE); Phencyclidine NEGATIVE (NEGATIVE); THC Cannibis NEGATIVE (NEGATIVE)
[2022-08-29 20:58] LABS: Urine Bacteria None Seen /HPF (<20); Urine Mucus Slight /HPF (None Seen); Urine RBC <5 /HPF (None Seen)
--- NOTE | 2022-08-29 21:53 | RAD REPORT ---
EXAM DESCRIPTION: CT - Angio Aorta For Dissection - 08/29/2022 9:32 pm CLINICAL HISTORY: . Chest and abd pain COMPARISON: 2021 CT abdomen TECHNIQUE: Computed tomography angiography of the chest, abdomen pelvis were obtained. 150 cc Isovue 370 was administered intravenously. Coronal and sagittal reconstruction were performed. MIP 3D reconstruction was performed All CT scans are performed using dose optimization technique as appropriate and may include automated exposure control or mA/KV adjustment according to patient size. FINDINGS: An aortic dissection is not seen. An aortic aneurysm is not displayed. The celiac, SMA and LORENA are patent . A lung consolidation is not present. A pericardial effusion is not seen. A pleural effusion is not no carmelita. The liver,spleen, pancreas,adrenals and kidneys demonstrate no significant abnormality. There no evidence diverticulitis. Mild to moderate anterior subluxation L5 on S1. Spondylolysis L5 IMPRESSION: Negative for an aortic dissection.
--- NOTE | 2022-08-29 22:32 | EDPHYS ---
Physician Documentation [facility] Name: Lorenzo Feng Age: 62 yrs Sex: Male : 1960 Arrival Date: 08/29/2022 Time: 18:13 Bed 6 Private MD: ED Physician Elia Puga HPI: 08/29 19:28 This 62 yrs old Male presents to ER via Ambulatory with complaints of Chest cp Pain. 19:28 The patient or guardian reports chest pain that is located primarily in the substernal cp area. 19:28 Onset: 3 day(s) ago, and became persistent today. The pain radiates to Associated signs cp and symptoms: Pertinent negatives: abdominal pain, cough, diaphoresis, lower extremity pain, lower extremity swelling, vomiting. 19:28 The chest pain is described as aching, a pressure. Duration: The patient or guardian cp reports multiple episodes, that wax and wane. 19:28 Severity of pain: in the emergency department the pain is unchanged despite home cp interventions. Historical: - Allergies: 18:20 No Known Allergies; hb - PMHx: 18:20 HTN; hb - Immunization history:: Adult Immunizations up to date. - Social history:: Smoking status: Patient denies any tobacco usage or history of. ROS: 19:33 Constitutional: Negative for body aches, chills, fever, poor PO intake. cp 19:33 Eyes: Negative for injury, pain, redness, and discharge. cp 19:33 ENT: Negative for drainage from ear(s), ear pain, sore throat, difficulty swallowing, difficulty handling secretions. 19:33 Cardiovascular: Positive for chest pain, Negative for edema, palpitations. 19:33 Respiratory: Negative for cough, shortness of breath, wheezing. 19:33 Abdomen/GI: Negative for abdominal pain, vomiting, diarrhea, constipation. 19:33 Back: Positive for radiated pain. cp 19:33 Neuro: Negative for altered mental status, dizziness, headache, numbness, syncope, near cp syncope, weakness. 19:33 All other systems are negative. Exam: 19:35 Constitutional: The patient appears in no acute distress, alert, awake, cp non-diaphoretic, non-toxic, well developed, well nourished. 19:35 Head/Face: Normocephalic, atraumatic. cp 19:35 Eyes: Periorbital structures: appear normal, Conjunctiva: normal, no exudate, no injection, Sclera: no appreciated abnormality, Lids and lashes: appear normal, bilaterally. 19:35 ENT: External ear(s): are unremarkable, Nose: is normal, Mouth: Lips: moist, Oral mucosa: pink and intact, moist, Posterior pharynx: is normal, airway is patent, no erythema, no exudate. 19:35 Neck: ROM/movement: is normal, is supple, without pain, no range of motions limitations. 19:35 Chest/axilla: Inspection: normal, Palpation: is normal, no crepitus, no tenderness. 19:35 Cardiovascular: Rate: normal, Rhythm: regular, Pulses: Pulses are 2+ in right radial artery and left radial artery. Edema: is not appreciated, JVD: is not appreciated. 19:35 Respiratory: the patient does not display signs of respiratory distress, Respirations: normal, no use of accessory muscles, no pursed lip breathing, labored breathing, is not present, Breath sounds: are clear throughout, no decreased breath sounds, no stridor, no wheezing. 19:35 Abdomen/GI: Inspection: abdomen appears normal, Bowel sounds: active, all quadrants, Palpation: abdomen is soft and non-tender, in all quadrants. 19:35 Back: pain, that is mild, of the upper back, ROM is normal. 19:35 Skin: no rash present. 19:35 Neuro: Orientation: to person, place \T\ time. Mentation: is normal, Motor: moves all fours, strength is normal, Sensation: is normal. Vital Signs: 18:16 BP 185 / 78; Pulse 77; Resp 18; Temp 97(TE); Pulse Ox 99% on R/A; Weight 96 kg; Height hb 5 ft. 9 in. ; Pain 4/10; 19:18 BP 177 / 77; Pulse 79; Resp 17 S; Pulse Ox 99% on R/A; Pain 4/10; lg3 20:39 BP 188 / 90 RA; lg3 20:39 BP 176 / 92 LA; lg3 21:44 BP 171 / 88; Pulse 63; Resp 19; Pulse Ox 100% on R/A; kd3 22:55 BP 159 / 90; Pulse 68; Resp 18 S; Pulse Ox 100% on R/A; lg3 18:16 Body Mass Index 31.25 (96.00 kg, 175.26 cm) hb 18:16 Pain Scale: Adult hb 19:18 Pain Scale: Adult lg3 MDM: 18:23 Patient medically screened. cp 22:05 Data reviewed: vital signs, nurses notes, lab test result(s), EKG, radiologic studies, cp CT scan, plain films. 22:05 Differential diagnosis: abnormal EKG, acute myocardial infarction, pericarditis, cp pleurisy, pneumonia, pneumothorax, stable angina, thoracic aortic disection, unstable angina. The patient was given aspirin in the Emergency Department. Consideration of Admission/Observation Patient was admitted/placed on observation. I considered the following discharge prescriptions or medication management in the emergency department Medications were administered in the Emergency Department. See MAR. Independent interpretation of the following test(s) in the Emergency Department X-Ray: My interpretation is chest image negative for infiltrates. Care significantly affected by the following chronic conditions: Hypertension. Counseling: I had a detailed discussion with the patient and/or guardian regarding: the historical points, exam findings, and any diagnostic results supporting the discharge/admit diagnosis, lab results, radiology results, the need for further work-up and treatment in the hospital. Response to treatment: the patient's symptoms have markedly improved after treatment. 08/29 18:28 Order name: Basic Metabolic Panel; Complete Time: 19:27 ll1 08/29 18:28 Order name: CBC with Diff; Complete Time: 19:27 ll1 08/29 18:28 Order name: Troponin HS; Complete Time: 19:27 ll1 08/29 18:39 Order name: PT-INR; Complete Time: 19:27 cp 08/29 18:39 Order name: Ptt, Activated; Complete Time: 19:27 cp 08/29 18:39 Order name: LFT's; Complete Time: 21:32 cp 08/29 18:39 Order name: BNP; Complete Time: 21:32 cp 08/29 19:27 Order name: Urine Microscopic Only; Complete Time: 21:32 cp 08/29 19:27 Order name: UDS; Complete Time: 21:32 cp 14 20:44 Order name: Troponin HS: repeat \T\2100; Complete Time: 21:32 cp 08/29 20:45 Order name: Urine Dipstick-Ancillary; Complete Time: 21:32 EDMS 08/29 20:47 Order name: COVID-19 SARS RT PCR; Complete Time: 21:59 3 08/29 22:00 Interpretation: Reviewed. cp 08/29 21:03 Order name: Lipase; Complete Time: 21:32 EDMS 08/29 18:28 Order name: XRAY Chest (1 view); Complete Time: 20:09 1 08/29 20:09 Interpretation: Report review. cp 08/29 20:38 Order name: CT Aorta for Dissection; Complete Time: 21:59 la1 08/29 22:00 Interpretation: Report reviewed. cp 08/29 18:28 Order name: EKG; Complete Time: 18:29 1 08/29 18:28 Order name: Cardiac monitoring; Complete Time: 18:30 1 08/29 18:28 Order name: EKG - Nurse/Tech; Complete Time: 18:49 1 08/29 18:28 Order name: IV Saline Lock; Complete Time: 18:28 [facility] 08/29 18:28 Order name: Labs collected and sent; Complete Time: 18:28 [facility] 08/29 18:28 Order name: O2 Per Protocol; Complete Time: 18:28 [facility] 08/29 18:28 Order name: O2 Sat Monitoring; Complete Time: 18:28 [facility] 08/29 19:27 Order name: Urine Dipstick-Ancillary (obtain specimen); Complete Time: 20:46 cp 08/29 19:28 Order name: Blood Pressure Recheck: bilateral upper extremity; Complete Time: 20:39 cp Administered Medications: 19:06 Drug: NS 0.9% IV 500 ml Route: IV; Rate: 500 ml/hr; Site: right antecubital; ll1 23:05 Follow up: Response: No adverse reaction; IV Status: Completed infusion; IV Intake: lg3 500ml 19:07 Drug: Nitroglycerin Sublingual 0.4 mg Route: Sublingual; ll1 23:06 Follow up: Response: No adverse reaction; No change in condition lg3 19:07 Drug: Aspirin PO Chewable Tablet 324 mg Route: PO; ll1 23:05 Follow up: Response: No adverse reaction lg3 20:39 Drug: Nitroglycerin Sublingual 0.4 mg Route: Sublingual; lg3 23:05 Follow up: Response: No adverse reaction; No change in condition lg3 20:39 Drug: Metoprolol PO 25 mg Route: PO; lg3 23:05 Follow up: Response: No adverse reaction lg3 Disposition: 08/30 07:37 Co-signature as Attending Physician, Elia Puga MD I reviewed the patient's care sp4 provided by the Advanced Practice Provider and agree with the diagnosis and treatment plan. Disposition Summary: 08/29/22 22:32 Hospitalization Ordered Hospitalization Status: Observation cp Provider: Rod Keen cp Location: Telemetry/MedSurg (observation) cp Condition: Stable cp Problem: new cp Symptoms: have improved cp Bed/Room Type: Standard cp Room Assignment: 407(08/29/22 22:51) bb Diagnosis - Hypertensive heart disease without heart failure cp - Chest pain, unspecified cp Discharge Instructions: - Discharge Summary Sheet bb Forms: - Family Work Release bb - Medication Reconciliation Form cp - SBAR form cp Signatures: Dispatcher [employer] EDMS Yenni White RN SWATI bb Vinay Mcwilliams, ADMITTING OFFICER-C ADMITTING OFFICER-Cla1 Aubrey Montalvo PA PA cp Katheryn Quintero RN RN Federica Payne RN RN lg3 Huang Lester RN RN ll1 Elia Puga MD MD sp4 Corrections: (The following items were deleted from the chart) 08/29 21:02 20:39 LIPASE+C.LAB.BRZ ordered. EDMS EDMS 22:51 22:32 cp bb
--- NOTE | 2022-08-29 22:32 | ER ---
Nurse's Notes [facility] Name: Lorenzo Feng Age: 62 yrs Sex: Male : 1960 Arrival Date: 08/29/2022 Time: 18:13 Bed 6 Private MD: Diagnosis: Hypertensive heart disease without heart failure;Chest pain, unspecified Presentation: 08/29 18:16 Chief complaint: intermittent substernal chest pain that radiates to back x 3 days. hb Denies SOB/nausea. Coronavirus screen: At this time, the client does not indicate any symptoms associated with coronavirus-19. Ebola Screen: No symptoms or risks identified at this time. Initial Sepsis Screen: Does the patient meet any 2 criteria? No. Patient's initial sepsis screen is negative. Does the patient have a suspected source of infection? No. Patient's initial sepsis screen is negative. Risk Assessment: Do you want to hurt yourself or someone else? Patient reports no desire to harm self or others. Onset of symptoms was August 26, 2022. 18:16 Method Of Arrival: Ambulatory hb 18:16 Acuity: DESIRAE 3 hb Historical: - Allergies: 18:20 No Known Allergies; hb - PMHx: 18:20 HTN; hb - Immunization history:: Adult Immunizations up to date. - Social history:: Smoking status: Patient denies any tobacco usage or history of. Screenin:29 [facility] ED Fall Risk Assessment (Adult) Score/Fall Risk Level 0 - 2 = Low Risk ll1 Oriented to surroundings, Maintained a safe environment, Educated pt \T\ family on fall prevention, incl call for assistance when getting out of bed, Hourly rounding (assess needs \T\ fall precautionary measures) done. Abuse screen: Denies threats or abuse. Nutritional screening: No deficits noted. Tuberculosis screening: No symptoms or risk factors identified. Assessment: 18:28 General: Appears in no apparent distress. Behavior is calm, cooperative, appropriate ll1 for age. Pain: Complains of pain in chest Pain radiates to back Quality of pain is described as aching, pressure, Pain began 2-3 days ago. Is intermittent. Cardiovascular: Reports chest pain. Musculoskeletal: Circulation, motion, and sensation intact. Capillary refill < 3 seconds, Reports pain in back. 19:07 Reassessment: No changes from previously documented assessment. Patient and/or family ll1 updated on plan of care and expected duration. Pain level reassessed. Patient is alert, oriented x 3, equal unlabored respirations, skin warm/dry/pink. 19:18 Reassessment:. General: Appears in no apparent distress. comfortable, Behavior is calm, lg3 cooperative. Pain: Complains of pain in chest Pain radiates to back Pain currently is 4 out of 10 on a pain scale. Is intermittent. Neuro: No deficits noted. Gonzalez Agitation-Sedation Scale (RASS): 0 - Alert and Calm Level of Consciousness is awake, alert, obeys commands, Oriented to person, place, time, situation. Cardiovascular: Reports chest pain, Denies nausea, shortness of breath, Capillary refill < 3 seconds Clubbing of nail beds is absent JVD is absent Patient's skin is warm and dry. Respiratory: No deficits noted. Airway is patent Respiratory effort is even, unlabored, Respiratory pattern is regular, symmetrical. GI: No deficits noted. No signs and/or symptoms were reported involving the gastrointestinal system. Abdomen is round non-distended. : No deficits noted. No signs and/or symptoms were reported regarding the genitourinary system. EENT: No deficits noted. No signs and/or symptoms were reported regarding the EENT system. Derm: No deficits noted. No signs and/or symptoms reported regarding the dermatologic system. Skin is intact, is healthy with good turgor, Skin is dry, Skin is normal, Skin temperature is warm. Musculoskeletal: No deficits noted. No signs and/or symptoms reported regarding the musculoskeletal system. Circulation, motion, and sensation intact. Range of motion: intact in all extremities. 20:40 Reassessment: Patient appears in no apparent distress at this time. No changes from lg3 previously documented assessment. Patient and/or family updated on plan of care and expected duration. Pain level reassessed. Patient is alert, oriented x 3, equal unlabored respirations, skin warm/dry/pink. 22:55 Reassessment: Patient appears in no apparent distress at this time. No changes from lg3 previously documented assessment. Patient and/or family updated on plan of care and expected duration. Pain level reassessed. Patient is alert, oriented x 3, equal unlabored respirations, skin warm/dry/pink. Vital Signs: 18:16 BP 185 / 78; Pulse 77; Resp 18; Temp 97(TE); Pulse Ox 99% on R/A; Weight 96 kg; Height hb 5 ft. 9 in. ; Pain 4/10; 19:18 BP 177 / 77; Pulse 79; Resp 17 S; Pulse Ox 99% on R/A; Pain 4/10; lg3 20:39 BP 188 / 90 RA; lg3 20:39 BP 176 / 92 LA; lg3 21:44 BP 171 / 88; Pulse 63; Resp 19; Pulse Ox 100% on R/A; kd3 22:55 BP 159 / 90; Pulse 68; Resp 18 S; Pulse Ox 100% on R/A; lg3 18:16 Body Mass Index 31.25 (96.00 kg, 175.26 cm) hb 18:16 Pain Scale: Adult hb 19:18 Pain Scale: Adult lg3 ED Course: 18:13 Patient arrived in ED. rg4 18:20 Triage completed. hb 18:20 Arm band placed on. hb 18:21 Huang Lester, RN is Primary Nurse. ll1 18:21 Patient placed in an exam room, on a stretcher. ll1 18:22 Aubrey Montalvo PA is PHCP. cp 18:22 Martell Keen MD is Attending Physician. cp 18:29 Patient has correct armband on for positive identification. Bed in low position. Call ll1 light in reach. Side rails up X2. Client placed on continuous cardiac and pulse oximetry monitoring. NIBP monitoring applied. ekg monitor on. 18:29 Patient maintains SpO2 saturation greater than 95% on room air. ll1 18:30 Inserted saline lock: 20 gauge in right antecubital area, using aseptic technique. ll1 Blood collected. 19:18 Family accompanied patient. lg3 19:32 XRAY Chest (1 view) In Process Unspecified. EDMS 19:43 Elia Puga MD is Attending Physician. cp 20:39 UDS Sent. lg3 20:39 Urine Microscopic Only Sent. lg3 20:56 COVID-19 SARS RT PCR Sent. lg3 20:56 Troponin HS: repeat \T\2100 Sent. lg3 21:34 CT Aorta for Dissection In Process Unspecified. EDMS 22:31 Rod Keen MD is Hospitalizing Provider. cp 23:06 No provider procedures requiring assistance completed. Patient admitted, IV remains in lg3 place. No redness/swelling at site. Administered Medications: 19:06 Drug: NS 0.9% IV 500 ml Route: IV; Rate: 500 ml/hr; Site: right antecubital; 1 23:05 Follow up: Response: No adverse reaction; IV Status: Completed infusion; IV Intake: lg3 500ml 19:07 Drug: Nitroglycerin Sublingual 0.4 mg Route: Sublingual; 1 23:06 Follow up: Response: No adverse reaction; No change in condition 3 19:07 Drug: Aspirin PO Chewable Tablet 324 mg Route: PO; 1 23:05 Follow up: Response: No adverse reaction lg3 20:39 Drug: Nitroglycerin Sublingual 0.4 mg Route: Sublingual; lg3 23:05 Follow up: Response: No adverse reaction; No change in condition lg3 20:39 Drug: Metoprolol PO 25 mg Route: PO; 3 23:05 Follow up: Response: No adverse reaction 3 Medication: 18:29 VIS not applicable for this client. [facility] Intake: 23:05 IV: 500ml; Total: 500ml. 3 Outcome: 22:32 Decision to Hospitalize by Provider. cp 23:06 Admitted to Med/surg accompanied by nurse, via wheelchair, room 407, Report called to [facility] [place] 23:06 Condition: stable 23:06 Instructed on the need for admit, Demonstrated understanding of instructions. 23:56 Patient left the ED. 3 Signatures: Dispatcher [employer] EDNY Aubrey Montalvo PA PA cp Katheryn Quintero RN RN hb Garcia, Rubi 4 Federica Payne RN RN 3 Huang Lester RN RN ll1 Jeanette Cruz RN RN kd3 Corrections: (The following items were deleted from the chart) 21:02 20:56 LIPASE+C.LAB.BRZ drawn and sent. [facility] EDMS
[2022-08-29] MEDS ORDERED: MELATONIN 5 MG TABLET PO PRN (23:01)
--- NOTE | 2022-08-29 23:14 | P.HP ---
Certification for Inpatient Patient admitted to: Observation With expected LOS: <2 Midnights Patient will require the following post-hospital care: None Practitioner: I am a practitioner with admitting privileges, knowledge of patient current condition, hospital course, and medical plan of care. Services: Services provided to patient in accordance with Admission requirements found in Title 42 Section 412.3 of the Code of Federal Regulations Patient History Date of Service: 08/29/22 Reason for admission: Chest pain History of Present Illness: 62-year-old male with history of hypertension presents the emergency department for chest pain. He reports intermittent chest pain over the course last 3 days substernal radiating to the back described as pressure-like. EKG without STEMI criteria present CT dissection protocol performed which was negative for aortic dissection or other acute findings. During his stay in the emergency department he was monitoring, treat was noted that he was having frequent PVCs. He was given aspirin, metoprolol, nitroglycerin in ED, nitroglycerin did seem to relieve his symptoms. Will admit under observation for ACS rule out. Allergies No Known Allergies Allergy (Unverified 11/24/21 17:31) - Past Medical/Surgical History Diabetic: No -: HTN Psychosocial/ Personal History: Patient lives at home with family - Family History Brother -: Heart disease, Hypertension Notes: Passed Mother -: Hypertension - Social History Smoking Status: Never smoker Alcohol use: Yes Place of Residence: Home Review of Systems 10-point ROS is otherwise unremarkable Cardiovascular: Chest Pain Physical Examination - Physical Exam General: Alert, In no apparent distress, Oriented x3 HEENT: Atraumatic, PERRLA, Mucous membr. moist/pink, EOMI, Sclerae nonicteric Neck: Supple, 2+ carotid pulse no bruit, No LAD Respiratory: Clear to auscultation bilaterally, Normal air movement Cardiovascular: Regular rate/rhythm, Normal S1 S2 Capillary refill: <2 Seconds Gastrointestinal: Normal bowel sounds, No tenderness Musculoskeletal: No tenderness Integumentary: No rashes Neurological: Normal speech, Normal strength at 5/5 x4 extr, Normal tone, Normal affect - Studies Laboratory Data (last 24 hrs) 08/29/22 20:37: Lipase Cancelled 08/29/22 18:35: Total Bilirubin 0.6, AST 26, ALT 27, Alkaline Phosphatase 66, Lipase 25 08/29/22 18:30: PT 12.1, INR 1.10, APTT 29.4 08/29/22 18:30: WBC 7.70, Hgb 15.9, Hct 46.1, Plt Count 185 08/29/22 18:30: Sodium 137, Potassium 3.6, BUN 9, Creatinine 0.60 L, Glucose 101 Assessment and Plan - Plan Assessment: Chest pain rule out ACS Hypertension Plan: Chest pain rule out ACS Initial troponin negative, EKG without STEMI criteria present. Trend troponins, monitor on tele, cardiology consult. Pain was relieved with nitroglycerin, patient denies previous cardiac evaluation. He is out of his blood pressure medications which were prescribed in [place], he was taking enalapril 10 mg daily, bisopropolol 2.5 mg daily, amiodarone 100 mg daily, and lercanidipine, he has been out of these medications for approximately 1 month now. Continue p.o. Lopressor for now. Appreciate further per from cardiology. Hypertension Continue as above. DVT PPX:Lovenox Code status: Full Discharge Plan: Home Plan to discharge in: 24 Hours - Advance Directives Does patient have a Living Will: No Does patient have a Durable POA for Healthcare: No - Code Status/Comfort Care Code Status Assessed: Yes (Full code) Critical Care: No Time Spent Managing Pts Care (In Minutes): 70
[2022-08-30] MEDS ORDERED: ONDANSETRON 4 MG/2 ML VIAL IV PRN (00:04)
[2022-08-30] MEDS ORDERED: ACETAMINOPHEN 500 MG TAB PO PRN (00:04)
[2022-08-30] MEDS ORDERED: MORPHINE 2 MG/ML SYR IV PRN (00:04)
[2022-08-30] MEDS ORDERED: NITROGLYCERIN 0.4 MG/TAB SL PRN (00:04)
[2022-08-30 00:39] VITALS: BMI 28.0
[2022-08-30 04:20] LABS: Absolute Lymphocytes (CBC) 1.6 K/uL (0.7-4.9); Hematocrit 41.7 % (39.6-49.0); Lymphocytes % 21.6 % (15.3-44.8); MCV 91.5 fL (80-100); MPV 8.9 fL (7.6-11.3); RBC Red Blood Cell Count 4.56 M/uL (4.33-5.43)
[2022-08-30 04:43] LABS: Potassium 3.3 mmol/L (3.5-5.1); Thyroid Stimulating Hormone 3.21 uIU/mL (0.358-3.740); Troponin High Sensitivity 9.8 pg/mL (<58.9)
--- NOTE | 2022-08-30 07:26 | P.PN ---
Date of Service: 08/30/22 Subjective: feels better this morning; no longer having chest pain intermittent pain for last few days; pressure sensation worsened when drinking water; food does not aggravate it no new/worsening symptoms overnight ROS: 10 point ROS as noted above, otherwise negative Physical Exam: GEN: Alert, oriented, NAD HEENT: Normal conjunctiva, sclera anicteric CV: Regular rate and rhythm, no edema Pulm: Nonlabored respirations on room air ABD: Soft, nontender, nondistended Neuro: Normal speech, normal affect Problem List: Chest pain, angina Hypertension tachyarrhythmia - ?afib patient reports h/o HTN only, but on amiodarone and med list states "arrhythmia" appears to have intermittent afib on telemetry; rate controlled Cardiology consulted troponin trending flat / normal concerning story with pressure, has HTN and ?arrhythmia sensation may be due to uncontrolled HTN, or possibly palpitations; ran out of amio and other meds ~3 weeks ago Monitor on telemetry cardiology recommended stress testing, which was positive plan for cardiac cath tomorrow Reports out of home BP medication was previously enalapril 10 mg daily, bisopropolol 2.5 mg daily, amiodarone 100 mg daily, and lercanidipine from [place] Has been out of these medications for 3-4weeks VTE: Lovenox Code: Full Dispo: home ~24-48 hours
[2022-08-30] MEDS ORDERED: INFLUENZA VACCINE (for 6+ mo) 0.5 ML DOSE IMVAC ONE (08:00)
[2022-08-30] MEDS: METOPROLOL TAR 50 MG TAB PO SCH ×2 (08:46→20:42)
[2022-08-30] MEDS: ENOXAPARIN 40 MG/0.4 ML SQ SCH (08:46)
[2022-08-30] MEDS: ASPIRIN EC 81 MG TAB PO SCH (08:46)
[2022-08-30] MEDS ORDERED: REGADENOSON 0.4 MG/5 ML SYR IV ONE (13:15)
--- NOTE | 2022-08-30 13:21 | EKG ---
Test Date: 2022-08-29 Test Time: 18:42:39 Twisting Frame Fixer: SANYA MEASUREMENT RESULTS: Intervals: Rate: 71 WY: 156 QRSD: 94 QT: 426 QTc: 462 [place]: P: 49 WY: 156 QRS: -15 T: 59 INTERPRETIVE STATEMENTS: Normal sinus rhythm Minimal voltage criteria for LVH, may be normal variant Borderline ECG Compared to ECG 02/10/2021 14:16:04 Left ventricular hypertrophy now present Ventricular premature complex(es) no longer present Electronically Signed On 08-30-22 13:19:37 CDT by Jamie Angulo
--- NOTE | 2022-08-30 14:21 | RAD REPORT ---
EXAM DESCRIPTION: NM - Rest Stress Cardiac Imaging - 08/30/2022 2:10 pm CLINICAL HISTORY: CHEST PAIN Chest pain. COMPARISON: No comparisons TECHNIQUE: The patient was administered approximately 10mCi of Tc 99m Sestamibi prior to resting SPE CT imaging of the heart. The patient was then administered approximately 30 mCi of Tc 99m Sestamibi f ollowing exercise or pharmacologic stress. Multiplanar SPECT images were reviewed. FINDINGS: Moderate sized area of moderate stress-induced ischemia suspected LV apex. No fixed defect is seen to suggest hibernating myocardium or scarred myocardium. The end diastolic volume is 166 ml, the end systolic volume is 107 ml, and the ejection fraction is 3 6 %. IMPRESSION: Moderate stress-induced ischemia involving the LV apex.
--- NOTE | 2022-08-30 16:34 | CON ---
Date of Consultation: 08/30/2022 Reason For Consultation: Chest pain. History Of Present Illness: A 62-year-old male, comes in with chest pain, pressure like, radiates to the neck and the jaw with activities, gets better with rest. Evaluated in the emergency room. Card iac enzymes have been negative. Past Medical History: Hypertension. Medications: Refer to reconciliation sheet for detailed list. Allergies: NO KNOWN DRUG ALLERGIES. Family History: No premature coronary artery disease or cancer. Social History: Does not smoke or drink. Does not use any drugs. Review of Systems: All systems reviewed and they were negative except what mentioned in HPI. Physical Examination: Vital Signs: Reviewed. Head and Neck: Pupils are equal, reactive to light. Intact eye movements. No JVD. No cervical lym phadenopathy. Neck is supple. Thyroid is not enlarged. Lungs: Clear to auscultation bilaterally. No rhonchi, wheezing, or crackles. No accessory muscle u se. Heart: Regular rate and rhythm. No extra sounds. Abdomen: Soft, nontender. Bowel sounds positive. No organomegaly. No masses or hernia. No rigidi ty or rebound. Extremities: No edema, clubbing, or cyanosis. Intact pulses. Skin: No rash. Neurologic: Alert, awake, oriented x3. No acute focal deficits appreciated. Investigations: Stress test showed moderate amount of stress-induced ischemia involving the LV apex. Assessment And Recommendations: Chest pain, sounds very atypical. Stress test is abnormal. Keep n. p.o. past midnight. Plan for coronary angiogram tomorrow morning, and continue aspirin and statin. SR/MODL Voice ID: [id number] Report ID: [id number]
[2022-08-30] MEDS ORDERED: ATORVASTATIN 40 MG TAB PO SCH (21:00)
[2022-08-31 03:34] LABS: Absolute Lymphocytes (CBC) 1.6 K/uL (0.7-4.9); Hematocrit 43.2 % (39.6-49.0); Lymphocytes % 22.1 % (15.3-44.8); MCV 91.6 fL (80-100); MPV 9.4 fL (7.6-11.3); RBC Red Blood Cell Count 4.72 M/uL (4.33-5.43)
[2022-08-31 04:03] LABS: Potassium 3.5 mmol/L (3.5-5.1)
--- NOTE | 2022-08-31 06:39 | TREADPHA ---
DX: CHEST PAIN Date of Study: 08/30/2022 Ht: 5' 9 " Wt: 189 lb 14.4 oz Consulting Physician: ROSHNI MEDICATIONS: TYLENOL, ASPIRIN, LIPITOR, LOVENOX, MELATONIN, LOPRESSOR, MORPHINE, NITROSTAT, ZOFRAN HISTORY: 62 YEAR OLD MALE WITH COMPLIANTS OF CHEST PAIN. HISTORY OF HYPERLIPIDEMIA, HYPERTENSION, FAMILY HISTORY OF CORONARY ARTERY DISEASE, DRINKS THREE BEERS PER DAY, DENIES SMOKING AND DRUG USE. PHYSICIAL EXAMINATION: RESTING B.P.: 160/103 RESTING H.R.: 62 RESTING EKG: NORMAL SINUS RHYTHM PROTOCOL: PHARMACOLOGIC EXERCISE TIME: 3:30 B.P. AT [place] STRESS: 151/86 IMPRESSION: LEXISCAN INJECTED, CARDIOLITE GIVEN PER PROTOCOL. SEE NUCLEAR MEDICINE REPORT. OCCASIONAL PREMATURE VENTRICULAR COMPLEXES NOTED. PATIENT DENIES SHORTNESS OF BREATH AND CHEST PAIN. NO SUPRAVENTRICULAR TACHYCARDIA, VENTRICULAR TACHYCARDIA, PREMATURE ATRIAL COMPLEXES NOTED. NO ELECTROCARDIOGRAM CHANGES WITH LEXISCAN.
[2022-08-31] MEDS: ENOXAPARIN 40 MG/0.4 ML SQ SCH (07:39)
[2022-08-31] MEDS: ASPIRIN EC 81 MG TAB PO SCH (07:54)
[2022-08-31] MEDS: METOPROLOL TAR 50 MG TAB PO SCH (07:54)
--- NOTE | 2022-08-31 08:22 | P.PN ---
Date of Service: 08/31/22 Subjective: feels much better this morning no pain reported today no new/worsening symptoms overnight ROS: 10 point ROS as noted above, otherwise negative Physical Exam: GEN: Alert, oriented, NAD HEENT: Normal conjunctiva, sclera anicteric CV: Regular rate and rhythm, no edema Pulm: Nonlabored respirations on room air ABD: Soft, nontender, nondistended Neuro: Normal speech, normal affect Problem List: Chest pain, angina Hypertension tachyarrhythmia - ?afib patient reports h/o HTN only, but on amiodarone and med list states "arrhythmia" appears to have intermittent afib on telemetry; rate controlled Cardiology consulted troponin trending flat / normal concerning story with pressure, has HTN and ?arrhythmia sensation may be due to uncontrolled HTN, or possibly palpitations; ran out of amio and other meds ~3 weeks ago Monitor on telemetry cardiology recommended stress testing, which was positive NPO for cardiac cath today? Reports out of home BP medication was previously enalapril 10 mg daily, bisopropolol 2.5 mg daily, amiodarone 100 mg daily, and lercanidipine from [place] Has been out of these medications for 3-4weeks VTE: Lovenox Code: Full Dispo: home ~24-48 hours DC pending stress test
[2022-08-31] MEDS ORDERED: HEPA 1000U/500MLS 2,000 UNIT/1,000 ML BAG IV ONE (11:02)
[2022-08-31] MEDS ORDERED: LIDOCAINE 1% 20 ML MDV ONE (11:02)
[2022-08-31] MEDS ORDERED: VERAPAMIL HCL 10 MG/4 ML VIAL IV ONE (11:03)
[2022-08-31] MEDS ORDERED: HEPARIN 5000 UNIT/ML 1 ML VIAL ONE (11:03)
[2022-08-31] MEDS ORDERED: FENTANYL CITR 100 MCG/2 ML ONE (11:03)
[2022-08-31] MEDS ORDERED: MIDAZOLAM HCL 2 MG/2 ML INJ ONE (11:03)
[2022-08-31] MEDS ORDERED: ASPIRIN 325 MG TAB ONE (11:04)
[2022-08-31] MEDS ORDERED: TICAGRELOR 90 MG TABLET PO ONE (11:04)
[2022-08-31] MEDS ORDERED: NITROGLYCERIN 100 MCG/ML SYR (for cath lab use only) IV ONE (11:04)
[2022-08-31] MEDS ORDERED: HEPARIN 10,000 UNIT/10 ML VIAL IV ONE (11:04)
[2022-08-31] MEDS ORDERED: ATROPINE SULF 1 MG/10 ML SYR IV ONE (11:04)
[2022-08-31] MEDS ORDERED: CLOPIDOGREL 75 MG TABLET ONE (11:04)
[2022-08-31] MEDS ORDERED: NITROGLYCERIN/D5W 25 MG/250 ML BTL IV ONE (11:05)
[2022-08-31] MEDS ORDERED: NA CHLORIDE 0.9% 500 ML ONE (11:41)
--- NOTE | 2022-08-31 12:21 | P.DS ---
Admission Date: 08/29/22 Discharge Date: 08/31/22 Disposition: ROUTINE DISCHARGE Discharge Condition: GOOD Reason for Admission: Chest pain Consultations: Cardiology - Dr. Angulo Brief History of Present Illness: 62-year-old male with history of hypertension presents the emergency department for chest pain. He reports intermittent chest pain over the course last 3 days substernal radiating to the back described as pressure-like. EKG without STEMI criteria present CT dissection protocol performed which was negative for aortic dissection or other acute findings. During his stay in the emergency department he was monitoring, treat was noted that he was having frequent PVCs. He was given aspirin, metoprolol, nitroglycerin in ED, nitroglycerin did seem to relieve his symptoms. Will admit under observation for ACS rule out. Hospital Course: Problem List: Chest pain, angina Hypertension tachyarrhythmia - afib Patient presented with chest pressure. EKG and troponins were ok/without signs of ischemia. CT chest - dissection protocol was negative for acute findings. Cardiology was consulted. Stress testing was positive. Patient underwent cardiac catheterization on 08/31, by Dr. Angulo who reported normal coronary arteries and normal LVEDP. During hospitalization, his symptoms improved, pain resolved shortly after admission, and patient was deemed stable for discharge. Patient came in with systolic hypertension ranging from 150-170s, reportedly off his home BP medications for 3-4 weeks. Refill given for enalapril 10mg daily. New prescription for amlodipine to help with resistant hypertension Cardiology recommended addition of metoprolol Vital Signs/Physical Exam: Temp Pulse Resp BP Pulse Ox 98.3 F 85 16 151/82 H 98 08/31/22 04:00 08/31/22 08:00 08/31/22 08:00 08/31/22 09:59 08/31/22 08:00 Physical Exam: GEN: Alert, oriented, NAD HEENT: Normal conjunctiva, sclera anicteric CV: Regular rate and rhythm, no edema Pulm: Nonlabored respirations on room air ABD: Soft, nontender, nondistended Neuro: Normal speech, normal affect Laboratory Data at Discharge: WBC 7.30 K/uL (4.3-10.9) 08/31/22 02:26 Hgb 15.3 g/dL (13.6-17.9) 08/31/22 02:26 Hct 43.2 % (39.6-49.0) 08/31/22 02:26 Plt Count 212 thou/uL (152-406) 08/31/22 02:26 PT 12.1 SECONDS (9.5-12.5) 08/29/22 18:30 INR 1.10 08/29/22 18:30 APTT 29.4 SECONDS (24.3-36.9) 08/29/22 18:30 Sodium 136 mmol/L (136-145) 08/31/22 02:26 Potassium 3.5 mmol/L (3.5-5.1) 08/31/22 02:26 BUN 9 mg/dL (7-18) 08/31/22 02:26 Creatinine 0.72 mg/dL (0.70-1.30) 08/31/22 02:26 Glucose 126 mg/dL (74-106) H 08/31/22 02:26 Total Bilirubin 0.6 mg/dL (0.2-1.0) 08/29/22 18:35 AST 26 U/L (15-37) 08/29/22 18:35 ALT 27 U/L (16-61) 08/29/22 18:35 Alkaline Phosphatase 66 U/L (45-117) 08/29/22 18:35 Triglycerides 52 mg/dL (<150) 08/30/22 03:48 Cholesterol 152 mg/dL (<200) 08/30/22 03:48 HDL Cholesterol 62 mg/dL (40-60) H 08/30/22 03:48 Cholesterol/HDL Ratio 2.45 08/30/22 03:48 Lipase Cancelled 08/29/22 20:37 Home Medications: Amlodipine [Norvasc*] 5 mg PO DAILY 30 Days #30 tab 08/31/22 Enalapril [Vasotec*] 10 mg PO DAILY 30 Days #30 tab 08/31/22 Metoprolol Tartrate [Lopressor*] 50 mg PO BID 30 Days #60 tab 08/31/22 New Medications: Metoprolol Tartrate [Lopressor*] 50 mg PO BID 30 Days #60 tab Amlodipine [Norvasc*] 5 mg PO DAILY 30 Days #30 tab Enalapril [Vasotec*] 10 mg PO DAILY 30 Days #30 tab Physician Discharge Instructions: PROBLEM: Patient presented with chest pressure. EKG and troponins were ok/without signs of ischemia. CT chest - dissection protocol was negative for acute findings. Cardiology was consulted. Stress testing was positive. Patient underwent cardiac catheterization on 08/31, by Dr. Angulo who reported normal coronary arteries and normal LVEDP. During hospitalization, his symptoms improved, pain resolved shortly after admission, and patient was deemed stable for discharge. Patient came in with systolic hypertension ranging from 150-170s, reportedly off his home BP medications for 3-4 weeks. Refill given for enalapril 10mg daily. New prescription for amlodipine to help with resistant hypertension Cardiology recommended addition of metoprolol GOAL: Clear understanding of disease process INSTRUCTIONS:Take medications as prescribed. Follow up with primary care physician Diet: As tolerated Activity: No weight or lifting to wrist for 5 days. DME DME: Date Ordered: Name of Company: [employer] Services Needed: None Name of Company: Date or Referral: IMMUNIZATION Influenza Vaccine Indicated: Yes Influenza Vaccine Given: No Date Given: Pneumonia Vaccine Indicated: No Pneumonia Vaccine Given: Date Given: Follow up: PCP within 1 week Cardiology in ~3-4 weeks Time spent managing pt's care (in minutes): 45
--- NOTE | 2022-08-31 12:21 | OP ---
Date of Procedure: 08/31/2022 Surgeon: LIS BARAKAT Procedures Performed: 1.Selective coronary angiogram. 2.Left heart catheterization. Indication: Abnormal stress test with chest pain. Access: Right radial artery 6-German closed with TR band. Complications: None. Bleeding: Less than 10 mL. Description Of Procedure: After risks, benefits, alternatives were explained, the patient agreed to the procedure and signed informed consent. The patient was brought into the cardiac catheterization laboratory, prepped and draped in the usual sterile fashion. Then, we accessed the right radial elpidio ry using pediatric micropuncture kit, placed 6-German Slender sheath, took 5-German Seymour 4.0 cathete r into the aortic root over a J-wire, engaged the left main and then RCA and took standard views and the catheter was pushed over the wire into the LV, measured the LVEDP, pullback did not record any gr adient. Then, I removed the catheter and sheath and placed TR band with good hemostasis. Findings: 1.Left main; large and normal. 2.LAD; moderate-sized and normal, normal diagonal branches. 3.Left circumflex; large and codominant and normal. 4.RCA; large and codominant and normal. 5.Normal LVEDP about 5 mmHg. Conclusion: 1.Normal coronary arteries. 2.Normal LVEDP. Recommendations: Find other causes of chest pain. The patient can be released from Cardiology stand point. /MIGUELL Voice ID: [id number] Report ID: [id number]
[2022-08-31 12:57] VITALS: O2SAT 98
[2022-08-31] MEDS ORDERED: ENALAPRIL 10 MG TAB PO ONE (13:21)
--- NOTE | 2022-08-31 14:22 | PN ---
Date of Progress Note: 08/31/2022 Subjective: Seen by bedside. He is doing clinically well, status post coronary angiogram, normal co ronary arteries that he can be released home. His chest pain is noncardiac. Review of Systems: No chest pain, shortness of breath, orthopnea, cough. No nausea, vomiting, diarrhea. All other syst ems reviewed and they were negative. Physical Examination: Vital Signs: Reviewed. Head and Neck: Pupils are equal, reactive to light. Intact eye movements. No JVD. No cervical lym phadenopathy. Neck is supple. Thyroid is not enlarged. Lungs: Clear to auscultation bilaterally. No rhonchi, wheezing, or crackles. No accessory muscle u se. Heart: Regular rate and rhythm. No extra sounds. Abdomen: Soft, nontender. Bowel sounds positive. No organomegaly. No masses or hernia. No rigidi ty or rebound. Extremities: No edema, clubbing, or cyanosis. Intact pulses. Skin: No rash. Neurologic: Alert, awake, oriented x3. No acute focal deficits appreciated. Investigations: BUN is . Troponin is negative. Assessment And Recommendations: 1.Chest pain with abnormal stress test; however, negative troponins, status post coronary angiogram. He has clean coronary arteries. The patient can be released to follow up on his blood pressure iss ue as an outpatient. 2.Hypertension. Blood pressure is uncontrolled still despite being on multiple medications, but it is getting better. Continue current treatment and adjust further as needed. 3.From Cardiology standpoint, the patient can be released to follow up with his primary care physici an as outpatient. /MIGUELL Voice ID: [id number] Report ID: [id number]
[2022-08-31 16:34] VITALS: BP 136/78; TEMP 97.5
[2022-09-01] MEDS ORDERED: ENALAPRIL 10 MG TAB PO SCH (09:00)
== END 2022-08-31 17:15 | disposition home or self-care (01) ==
LOC: ER 18:11 → 4TH 22:43
PROVIDERS: ADMIT Hospitalist; ATTEND Hospitalist
PROC: 4A023N7 Measurement of Cardiac Sampling and Pressure, Left Heart, Percutaneous Approach (ICD-10-PCS; principal; 2022-08-31)
PROC: B2011ZZ Plain Radiography of Multiple Coronary Arteries using Low Osmolar Contrast (ICD-10-PCS; 2022-08-31)
DX: I20.9 Angina pectoris, unspecified (principal); I48.91 Unspecified atrial fibrillation; R94.39 Abnormal result of other cardiovascular function study; R00.0 Tachycardia, unspecified; I10 Essential (primary) hypertension; Z20.822 Contact with and (suspected) exposure to COVID-19
CPT/HCPCS: 36415; 71045; 71275; 74175; 78452; 80048; 80061; 80076; 80307; 81003; 81015; 83690; 83880; 84439; 84443; 84484; 85025; 85610; 85730; 93005; 93017; 93458; 96360; 96361; 99285; A9500; C1893; G0378; J0461; J1644; J1650; J2001; J2250; J2785; J3010; J7040; Q9966; Q9967; U0003

== ENCOUNTER 2023-05-09 12:01 | Emergency (ER) | payer SELFPAY ==
[2023-05-09] MEDS ORDERED: NITROGLYCERIN 1 GM PKT TD ONE (12:49)
[2023-05-09] MEDS ORDERED: ASPIRIN 81 MG CHEWABLE TABLET ONE (12:50)
[2023-05-09 13:00] LABS: Absolute Lymphocytes (CBC) 1.1 K/uL (0.7-4.9); Hematocrit 48.8 % (39.6-49.0); Lymphocytes % 16.7 % (15.3-44.8); MCV 91.1 fL (80-100); MPV 8.9 fL (7.6-11.3); Platelets 201 thou/uL (152-406); RBC Red Blood Cell Count 5.35 M/uL (4.33-5.43)
--- NOTE | 2023-05-09 13:06 | RAD REPORT ---
EXAM DESCRIPTION: New Single View05/09/2023 12:47 pm CLINICAL HISTORY: Chest pain COMPARISON: August 2022 FINDINGS: The lungs appear clear of acute infiltrate. The heart is borderline enlarged IMPRESSION: No acute abnormalities displayed
[2023-05-09 13:30] LABS: Albumin 3.8 g/dL (3.4-5.0); Bilirubin Direct 0.2 mg/dL (0-0.2); Bilirubin Indirect, Calculated 0.7 mg/dL (0.2-0.8); Bilirubin Total 0.9 mg/dL (0.2-1.0); Magnesium 1.9 mg/dL (1.6-2.4); Potassium 3.4 mEq/L (3.5-5.1); Protein, Total 8.5 g/dL (6.4-8.2); Troponin High Sensitivity 14.1 pg/mL (<58.9)
--- NOTE | 2023-05-09 14:27 | ER ---
Nurse's Notes [facility] Name: Lorenzo Feng Age: 62 yrs Sex: Male : 1960 Arrival Date: 05/09/2023 Time: 12:01 Bed 7 Private MD: Diagnosis: Chest pain, unspecified Presentation: 05/09 12:07 Chief complaint: Patient states: about an hour ago he started feeling pain in his neck iw and back of head, his BP was high, then he started having chest pain, he had a heart cath earlier this year and it was clear. Coronavirus screen: At this time, the client does not indicate any symptoms associated with coronavirus-19. Ebola Screen: Patient negative for fever greater than or equal to 101.5 degrees Fahrenheit, and additional compatible Ebola Virus Disease symptoms Patient denies exposure to infectious person. Patient denies travel to an Ebola-affected area in the 21 days before illness onset. No symptoms or risks identified at this time. Initial Sepsis Screen: Does the patient meet any 2 criteria? No. Patient's initial sepsis screen is negative. Does the patient have a suspected source of infection? No. Patient's initial sepsis screen is negative. Risk Assessment: Do you want to hurt yourself or someone else? Patient reports no desire to harm self or others. 12:07 Method Of Arrival: Ambulatory iw 12:07 Acuity: DESIRAE 2 iw 12:07 Onset of symptoms was May 09, 2023. iw Triage Assessment: 12:48 General: Appears in no apparent distress. comfortable. Pain: Complains of pain in chest tl4 Pain currently is 8 out of 10 on a pain scale. Quality of pain is described as burning. 12:48 General: Behavior is calm, cooperative. tl4 Historical: - Allergies: 12:08 No Known Allergies; iw - Home Meds: 12:08 amlodipine 5 mg tablet daily [Active]; iw - PMHx: 12:08 Hypertensive disorder; iw - PSHx: 12:08 None; iw - Immunization history:: Client reports receiving the 1st dose of the Covid vaccine. - Social history:: Smoking status: Patient denies any tobacco usage or history of. - Family history:: not pertinent. Screenin:42 [facility] ED Fall Risk Assessment (Adult) History of falling in the last 3 months, tl4 including since admission No falls in past 3 months (0 pts) Confusion or Disorientation No (0 pts) Intoxicated or Sedated No (0 pts) Impaired Gait No (0 pts) Mobility Assist Device Used No (0 pt) Altered Elimination No (0 pt) Score/Fall Risk Level 0 - 2 = Low Risk Oriented to surroundings, Maintained a safe environment, Provided non-skid footwear, Hourly rounding (assess needs \T\ fall precautionary measures) done. 12:42 Clinical [place] Withdrawal Assessment for Alcohol, revised (CIWA-Ar): tl4 Nausea/Vomitin - No nausea or vomiting Headache: 0 - Not present Paroxysmal Sweats: 0 - No sweats visible Anxiety: 0 - No anxiety, at ease Agitation: 0 - Normal actiivty Tremor: 0 - No tremor Auditory Disturbances: 0 - Not present Visual Disturbances: 0 - Not present Tactile Disturbances: 0 - None Orientation and Clouding of Sensorium: 0 - Oriented and can do serial additions. Abuse screen: Denies threats or abuse. Denies injuries from another. Nutritional screening: No deficits noted. Tuberculosis screening: No symptoms or risk factors identified. Risk factors:. Assessment: 12:25 Reassessment: Patient appears in no apparent distress at this time. No changes from tl4 previously documented assessment. Patient and/or family updated on plan of care and expected duration. Pain level reassessed. Patient is alert, oriented x 3, equal unlabored respirations, skin warm/dry/pink. 12:43 Pain: Complains of pain in chest Pain does not radiate. Pain currently is 8 out of 10 tl4 on a pain scale. Quality of pain is described as burning, Pain began gradually. Neuro: No deficits noted. Cardiovascular: Reports chest pain, shortness of breath, Denies diaphoresis, fatigue, lightheadedness, nausea, palpitations, syncope, vomiting. Respiratory: Reports shortness of breath. GI: No deficits noted. No signs and/or symptoms were reported involving the gastrointestinal system. : No deficits noted. No signs and/or symptoms were reported regarding the genitourinary system. EENT: No deficits noted. No signs and/or symptoms were reported regarding the EENT system. Vital Signs: 12:07 BP 206 / 99; Pulse 98; Resp 16; Temp 99; Pulse Ox 100% on R/A; Weight 88.45 kg; Pain iw 9/10; 12:30 BP 172 / 104; Pulse 92; Resp 16; Pulse Ox 100% on R/A; Pain 8/10; tl4 13:50 BP 171 / 78; Pulse 91; Pulse Ox 100% on R/A; ap3 12:07 Pain Scale: Adult iw 12:30 Pain Scale: Adult tl4 Vitals: 12:30 Cardiac Rhythm Assessment Regular Sinus rhythm W/unifocal PVC's. tl4 ED Course: 12:02 Patient arrived in ED. mr 12:04 Sebastian Ferguson MD is Attending Physician. rt 12:08 Triage completed. iw 12:08 Arm band placed on. iw 12:24 Inserted saline lock: 20 gauge in right antecubital area, using aseptic technique. tl4 Blood collected. 12:30 Basic Metabolic Panel Sent. tl4 12:30 CBC with Diff Sent. tl4 12:30 LFT's Sent. tl4 12:30 Magnesium Sent. tl4 12:30 NT PRO-BNP Sent. tl4 12:30 Troponin HS Sent. tl4 12:46 Patient has correct armband on for positive identification. Placed in gown. Bed in low tl4 position. Call light in reach. Side rails up X2. Adult w/ patient. Provided Education on: IV, ER process, medications. Client placed on continuous cardiac and pulse oximetry monitoring. NIBP monitoring applied. Door closed. Noise minimized. Moved to private room. Warm blanket given. 12:48 XRAY Chest (1 view) In Process Unspecified. EDMS 12:48 No provider procedures requiring assistance completed. Patient maintains SpO2 tl4 saturation greater than 95% on room air. 14:08 Linnea Vazquez, RN is Primary Nurse. ap3 14:45 IV discontinued, intact, bleeding controlled, No redness/swelling at site. Pressure ap3 dressing applied. Administered Medications: 12:39 Drug: Aspirin PO Chewable Tablet 324 mg PO once; 81 mg tablets x 4 Route: PO; tl4 12:55 Follow up: Response: No adverse reaction tl4 12:40 Drug: Nitroglycerin Transdermal Ointment 2 % 1 inches Transdermal once {Note: right tl4 chest wall.} Route: Transdermal; Site: anterior chest wall; Medication: 12:48 VIS not applicable for this client. tl4 Outcome: 14:27 Discharge ordered by . rt 14:44 Discharged to home ambulatory, with family, ap3 14:44 Condition: good 14:44 Discharge instructions given to patient, family, Instructed on discharge instructions, follow up and referral plans. Demonstrated understanding of instructions, follow-up care, 14:45 Patient left the ED. ap3 Signatures: Dispatcher [employer] EDUT Allyn Altamirano, Reg Reg mr Mariya Laws, RN SWATI iw Linnea Vazquez RN RN ap3 Sebastian Ferguson MD MD rt [facility], Fer 4 Corrections: (The following items were deleted from the chart) 12:09 12:07 BP 206 / 99; Pulse 98bpm; Resp 16bpm; Pulse Ox 100% RA; Temp 99F; iw iw
--- NOTE | 2023-05-09 14:28 | EDPHYS ---
Physician Documentation [facility] Name: Lorenzo Feng Age: 62 yrs Sex: Male : 1960 Arrival Date: 05/09/2023 Time: 12:01 Bed 7 Private MD: ED Physician Sebastian Ferguson HPI: 05/09 12:55 This 62 yrs old Male presents to ER via Ambulatory with complaints of Chest rt Pain, High Blood Pressure. 12:55 Patient presents to the ED with chest pain radiating to the neck and left arm starting rt at about 9 this morning. The patient states that this occurs with blood pressure elevates. Something similar happened earlier this year, was admitted, had a normal cardiac catheterization. Reports mild shortness of breath. Denies other acute complaints at this time, symptoms are moderate in severity, no other aggravating or alleviating factors.. Historical: - Allergies: 12:08 No Known Allergies; iw - Home Meds: 12:08 amlodipine 5 mg tablet daily [Active]; iw - PMHx: 12:08 Hypertensive disorder; iw - PSHx: 12:08 None; iw - Immunization history:: Client reports receiving the 1st dose of the Covid vaccine. - Social history:: Smoking status: Patient denies any tobacco usage or history of. - Family history:: not pertinent. ROS: 12:55 Constitutional: Negative for fever, chills, and weight loss, Abdomen/GI: Negative for rt abdominal pain, nausea, vomiting, diarrhea, and constipation, MS/Extremity: Negative for injury and deformity, Skin: Negative for injury, rash, and discoloration, Neuro: Negative for headache, weakness, numbness, tingling, and seizure, Psych: Negative for depression, anxiety, suicide ideation, homicidal ideation, and hallucinations, 12:55 Cardiovascular: Positive for chest pain, Negative for edema, 12:55 Respiratory: Positive for shortness of breath, Negative for cough, Exam: 12:55 Constitutional: This is a well developed, well nourished patient who is awake, alert, rt and in no acute distress. Head/Face: Normocephalic, atraumatic. Chest/axilla: Normal chest wall appearance and motion. Nontender with no deformity. No lesions are appreciated. Cardiovascular: Regular rate and rhythm with a normal S1 and S2. No gallops, murmurs, or rubs. Normal PMI, no JVD. No pulse deficits. Respiratory: Lungs have equal breath sounds bilaterally, clear to auscultation and percussion. No rales, rhonchi or wheezes noted. No increased work of breathing, no retractions or nasal flaring. Abdomen/GI: Soft, non-tender, with normal bowel sounds. No distension or tympany. No guarding or rebound. No evidence of tenderness throughout. Skin: Warm, dry with normal turgor. Normal color with no rashes, no lesions, and no evidence of cellulitis. MS/ Extremity: Pulses equal, no cyanosis. Neurovascular intact. Full, normal range of motion. Neuro: Awake and alert, GCS 15, oriented to person, place, time, and situation. Cranial nerves II-XII grossly intact. Motor strength 5/5 in all extremities. Sensory grossly intact. Cerebellar exam normal. Normal gait. Psych: Awake, alert, with orientation to person, place and time. Behavior, mood, and affect are within normal limits. 12:55 ECG was reviewed by the Attending Physician. Vital Signs: 12:07 BP 206 / 99; Pulse 98; Resp 16; Temp 99; Pulse Ox 100% on R/A; Weight 88.45 kg; Pain iw 9/10; 12:30 BP 172 / 104; Pulse 92; Resp 16; Pulse Ox 100% on R/A; Pain 8/10; tl4 13:50 BP 171 / 78; Pulse 91; Pulse Ox 100% on R/A; ap3 12:07 Pain Scale: Adult iw 12:30 Pain Scale: Adult tl4 MDM: 12:12 Patient medically screened. rt 20:10 Differential diagnosis: SD, hypertension, pneumonia, pneumothorax. HEART Score: rt History: Moderately Suspicious (1), ECG: Non specific repolarization disturbance / LBTB / PM (1), Age: > or = 65 years (2), Risk Factors: 1 or 2 risk factors (1), Troponin: < or = 1 x Normal Limit (0), Total Score = 4. Data reviewed: vital signs, nurses notes, old medical records, lab test result(s), EKG, radiologic studies. Consideration of Admission/Observation Escalation of care including admission/observation considered. Patient with normal heart catheterization earlier this year, not likely to benefit from further admission, 2 negative troponins, symptoms resolved with medicines in the ED, patient to follow-up as an outpatient.. I considered the following discharge prescriptions or medication management in the emergency department Medications were administered in the Emergency Department. See MAR. Independent interpretation of the following test(s) in the Emergency Department X-Ray: My interpretation is No consolidation seen on my interpretation of x-ray images. Test considered but Not performed: CT: Low suspicion for PE, CT angiogram not indicated. Care significantly affected by the following chronic conditions: Hypertension. Counseling: I had a detailed discussion with the patient and/or guardian regarding the historical points, exam findings, and any diagnostic results supporting the discharge/admit diagnosis, lab results, radiology results, the need for outpatient follow up, to return to the emergency department if symptoms worsen or persist or if there are any questions or concerns that arise at home. Response to treatment: the patient's symptoms have markedly improved after treatment. 05/09 12:26 Order name: Basic Metabolic Panel; Complete Time: 13:41 rt 05/09 12:26 Order name: CBC with Diff; Complete Time: 13:15 rt 05/09 12:26 Order name: LFT's; Complete Time: 13:41 rt 05/09 12:26 Order name: Magnesium; Complete Time: 13:41 rt 05/09 12:26 Order name: NT PRO-BNP; Complete Time: 13:41 rt 05/09 12:26 Order name: Troponin HS; Complete Time: 13:41 rt 05/09 13:52 Order name: Troponin High Sensitivity; Complete Time: 14:23 rt 05/09 12:26 Order name: XRAY Chest (1 view); Complete Time: 13:15 rt 05/09 12:26 Order name: EKG; Complete Time: 12:27 rt 05/09 12:24 Order name: Cardiac monitoring; Complete Time: 12:24 tl4 05/09 12:24 Order name: EKG - Nurse/Tech; Complete Time: 12:24 tl4 05/09 12:24 Order name: IV Saline Lock; Complete Time: 12:24 tl4 05/09 12:24 Order name: Labs collected and sent; Complete Time: 12:24 tl4 05/09 12:24 Order name: O2 Per Protocol; Complete Time: 12:24 tl4 05/09 12:24 Order name: O2 Sat Monitoring; Complete Time: 12:24 tl4 EC:55 Rate is 90 beats/min. Rhythm is regular, Sinus Rhythm with Occasional PVCs. QRS [place] is rt Normal. [place] interval is normal. QRS interval is normal. QT interval is normal. No Q waves. Clinical impression: NSR w/ Non-specific ST/T Changes. Administered Medications: 12:39 Drug: Aspirin PO Chewable Tablet 324 mg PO once; 81 mg tablets x 4 Route: PO; tl4 12:55 Follow up: Response: No adverse reaction tl4 12:40 Drug: Nitroglycerin Transdermal Ointment 2 % 1 inches Transdermal once {Note: right tl4 chest wall.} Route: Transdermal; Site: anterior chest wall; Disposition Summary: 05/09/23 14:27 Discharge Ordered Notes: Location: Home rt Problem: new rt Symptoms: have improved rt Condition: Stable rt Diagnosis - Chest pain, unspecified rt Followup: rt - With: Private Physician - When: 2 - 3 days - Reason: Discharge Instructions: - Discharge Summary Sheet rt - Nonspecific Chest Pain, Adult rt Forms: - Medication Reconciliation Form rt - Thank You Letter rt - Antibiotic Education rt - Prescription Opioid Use rt - Patient Portal Instructions rt - Leadership Thank You Letter rt Signatures: Dispatcher [employer] Mariya Drew RN RN iw Sebastian Ferguson MD MD rt LogdaFer goddard tl4
[2023-05-09 14:59] VITALS: TEMP 99; O2SAT 100
[2023-05-09 15:04] VITALS: BP 171/78
--- NOTE | 2023-05-14 17:01 | EKG ---
Test Date: 2023-05-09 Test Time: 12:16:52 Sack Filler: TL MEASUREMENT RESULTS: Intervals: Rate: 90 WV: 150 QRSD: 92 QT: 372 QTc: 455 [place]: P: 52 WV: 150 QRS: 5 T: 66 INTERPRETIVE STATEMENTS: Sinus rhythm with frequent premature ventricular complexes Cannot rule out Anterior infarct, age undetermined Abnormal ECG Compared to ECG 08/29/2022 18:42:39 Ventricular premature complex(es) now present Myocardial infarct finding now present Left ventricular hypertrophy no longer present Electronically Signed On 05-14-23 16:54:25 PROJECTION WELDING MACHINE OPERATOR by Jamie Angulo
== END 2023-05-09 14:45 | disposition home or self-care (01) ==
LOC: ER 12:01
DX: R07.89 Other chest pain (principal)
CPT/HCPCS: 36415; 71045; 80048; 80076; 83735; 83880; 84484; 85025; 93005; 99284